=== PATIENT | male | born 1965 | race Caucasian/White ===

== ENCOUNTER 2019-08-16 12:28 | Inpatient (IN) ==
[2019-08-16 13:21] LABS: Basophils # (auto) 0.02 K/uL (0-0.2); Basophils % (auto) 0.3 %; Eosinophils # (auto) 0.06 K/uL (0-0.5); Eosinophils % (auto) 0.9 %; Hemoglobin 16.5 g/dL (14.0-18.0); Immature Granulocytes # (auto) 0.01 K/uL (0.00-0.02); Immature Granulocytes % (auto) 0.1 %; Lymphocytes % (auto) 24.2 %; Mean Corpuscular Hemoglobin 33.4 pg (25-34); Mean Corpuscular Hgb Conc 35.1 g/dL (32-36); Mean Corpuscular Volume 95.1 fL (80-100); Mean Platelet Volume 10.2 fL (7.4-10.4); Monocytes # (auto) 0.66 K/uL (0.11-0.59); Monocytes % (auto) 9.4 %; Neutrophils # (auto) 4.58 K/uL (1.4-6.5); Neutrophils % (auto) 65.1 %; Platelet Count 227 K/uL (130-400); RDW Coefficient of Variation 12.5 % (11.5-14.5); RDW Standard Deviation 42.9 fL (36.4-46.3); Red Blood Count 4.94 M/uL (4.7-6.1); White Blood Count 7.03 K/uL (4.8-10.8)
[2019-08-16 13:36] LABS: INR 1.2 (0.9-1.1); Partial Thromboplastin Ratio 0.9; Partial Thromboplastin Time 24.3 Seconds (21.0-31.0); Prothrombin Time 11.8 Seconds (9.0-12.0)
--- NOTE | 2019-08-16 13:52 | XRay Report ---
XR chest 2V PA/lateral CLINICAL HISTORY: Dyspnea COMPARISON STUDY: No previous studies for comparison. FINDINGS: There is no pneumothorax. There are small bilateral pleural effusions, left larger than rig ht. Extensive bilateral lower lobe consolidation is noted. A 5.1 cm irregular right midlung opacity i s noted. There is mild left midlung opacity is well. Moderate enlargement of the cardiac silhouette i s noted. Note is made of a 3.5 cm partially calcified density which projects over the heart. IMPRESSION: 1. Extensive bilateral lower lobe consolidation which favors pneumonia. Post treatment radiographs to ensure resolution are recommended. 2. Small bilateral pleural effusions, left larger than right. 3. 5.1 cm irregular right midlung opacity. This could reflect a focus of pneumonia or a pulmonary ma ss. This should be assessed on subsequent exams to ensure resolution. 4. 3.5 cm partially calcified abnormality which projects over the heart. This could reflect an old in farct, partially calcified thrombus or a cardiac mass. A chest CT is recommended. ACT 112: Negative or not required by law. Electronically signed by: Frankie Rodrigues M.D. 08/16/2019 1:51 PM
[2019-08-16 13:57] LABS: Albumin Globulin Ratio 0.9 (0.9-2); Albumin Level 3.3 gm/dl (3.4-5.0); BUN Creatinine Ratio 11.3 (10-20); Bilirubin,Total 0.7 mg/dl (0.2-1); Calcium 9.2 mg/dl (8.5-10.1); Creatinine Clr Calc Pharmacy 66.7 ml/min; Est GFR (African American) 86.1; Est GFR (Non-African American) 74.3; Globulin 3.7 gm/dl (2.5-4.0); Potassium 4.2 mmol/L (3.5-5.1)
[2019-08-16] MEDS ORDERED: PIPERACILLIN/TAZOBACTAM 4.5 GM/120 ML BAG IV ONE (13:57)
[2019-08-16] MEDS ORDERED: PIPERACILL/TAZOBAC CONSULT ACTIVE PRN (13:57)
[2019-08-16 14:04] LABS: Appearance Urine Clear (Clear); Bacteria Urine Automated Negative (Negative); Blood Urine Negative (Negative); Color Urine Dark Yellow; Glucose Urine UA Negative (Negative); Ketones Urine Trace (Negative); Leukocyte Esterase Urine Negative (Negative); Nitrite Urine Negative (Negative); Protein Urine 1+ (Negative); RBC Urine Automated 0-4 /hpf (0-4); Specific Gravity Urine 1.026 (1.000-1.030); Urobilinogen Urine Negative (Negative); pH Urine 5.5 (4.5-7.5)
[2019-08-16 14:10] LABS: Bilirubin Urine Negative (Negative); Ictotest Urine Negative (Negative)
[2019-08-16 14:20] LABS: Mucus Urine Present (None Prsent)
[2019-08-16] MEDS ORDERED: OPTIRAY 320 125ml IV PRN (14:22)
--- NOTE | 2019-08-16 14:43 | CT Scan Report ---
CT angio chest PE protocol CT DOSE: 337.66 mGycm HISTORY: ALEXANDER eval for PE/mass TECHNIQUE: Multiaxial CT images of the chest were performed following the intravenous administration of contrast to evaluate the pulmonary arteries. Maximal intensity projection images were also obtaine d. A dose lowering technique was utilized adhering to the principles of ALARA. COMPARISON STUDY: None. FINDINGS: The thoracic aorta is unremarkable. There are bilateral large pleural effusions. Pulmonary vasculature enhances appropriately. There are no significant filling defects. There are components of bilateral lower lobe atelectatic change. There are scattered parenchymal infiltrative changes involving the left upper lobe and more prominent ly seen in the right upper lobe region. IMPRESSION: 1. No evidence of pulmonary embolus. 2. Large bilateral pleural effusions with bilateral lower lobe atelectatic change. 3. Patchy parenchymal infiltrates involving the mid and upper lung regions bilaterally. 4. Consolidative infiltrate central aspect right upper lobe. ACT 112: Negative or not required by law. The above report was generated using voice recognition software. It may contain grammatical, syntax or spelling errors. Electronically signed by: Miller Silva M.D. 08/16/2019 2:41 PM
[2019-08-16 14:44] LABS: Influenza A virus by PCR Neg for Influ A (Neg); Influenza B virus by PCR Neg for Influ B (Neg)
[2019-08-16] MEDS ORDERED: ACETAMINOPHEN 325 MG TAB PO PRN (16:50)
[2019-08-16] MEDS ORDERED: cefTRIAXone SODIUM 2,000 MG/70 ML BAG IV SCH (16:50)
--- NOTE | 2019-08-16 17:20 | Emergency Department Note ---
Entered by Sandrita Lozano acting as a scribe for Macho Mendiola MD History of Present Illness General Chief complaint: Shortness of Breath/Dyspnea Stated complaint: TIGHTNESS IN CHEST - BREATHING PROBLEMS Time Seen by Provider: 08/16/19 12:51 Source: patient History of Present Illness Onset (ago): week(s) 3 Location: chest Pain Consistency: + other (worsening ) Maximum Pain Intensity: 0 Quality: + other (shortness of breath ) Exacerbated By: + other (exertion) Associated symptoms: + cough (productive with mucous) and + other (positive runny nose; negative muscle aches; negative leg swelling); no chest pain and no nausea/vomiting The patient is a 53 year old male who presents to the Emergency Room with complaints of worsening shortness of breath that began 3 weeks prior to arrival. He states during this time he has had a productive cough with mucous. The patient reports a runny nose during this time. The patient denies any chest pain or chest discomfort with this pain. He states that his shortness of breath is exacerbated with exertion. The patient denies nausea, vomiting, muscle aches, and leg swelling. He states that he was seen by [facility] just prior to arrival and states that an x-ray showed a small amount of fluid in his lungs at this time. He was sent here for evaluation. The patient states that his smokes in the house regularly, he denies being a smoker himself. Home Medications Home Medications Medication Instructions Recorded Confirmed Type No Known Home Medications 08/16/19 08/16/19 History Allergies Allergy/AdvReac Type Severity Reaction Status Date / Time No Known Allergies Allergy Unverified 08/16/19 13:48 Past Med/Surg History Medical History No significant past medical history Social History Preferred Language: Maltese Communication Ability: Effective Tube And Rod Straightener Required: No Beliefs That Will Affect Care: None Current Living Situation: Spouse Other Information That Helps Us Care for You: No Feels Safe at Home: Yes Safety Concerns: Feels Safe At This Time Smoking Status: Never smoker Do You Dip or Chew Tobacco: No ; Second Hand Exposure: No ; Tobacco Cessation Education Requested by Patient: No Hx Alcohol Use: Yes Hx Substance Use: No Review of Systems See HPI for pertinent positives & negatives. and A total of 10 systems reviewed and were otherwise negative Physical Exam Vital Signs Vital Signs - 24 hr 08/16/19 12:30 08/16/19 12:53 08/16/19 12:56 Pulse Rate 99 H 103 H Pulse Rate from SpO2 Sensor 103 H Respiratory Rate 18 21 Respiratory Effort / Characteristics Non-Labored Spontaneous Respiratory Depth Normal Blood Pressure 136/86 119/84 Blood Pressure Mean 102 90 Pulse Oximetry 100 93 96 Oxygen Delivery Method Room Air Room Air Sepsis Recent Fever Within 48 Hours No Sepsis Action Taken by Nursing No Action Required 08/16/19 12:59 08/16/19 13:00 08/16/19 13:01 Pulse Rate 103 H 103 H 103 H Pulse Rate from SpO2 Sensor 103 H 102 H 100 H Respiratory Rate 28 H 19 22 Respiratory Effort / Characteristics Respiratory Depth Blood Pressure 142/88 H Blood Pressure Mean 118 Pulse Oximetry 95 94 95 Oxygen Delivery Method Sepsis Recent Fever Within 48 Hours Sepsis Action Taken by Nursing 08/16/19 13:13 08/16/19 13:46 08/16/19 14:00 Pulse Rate 96 H 108 H 102 H Pulse Rate from SpO2 Sensor 107 H 103 H Respiratory Rate 20 23 28 H Respiratory Effort / Characteristics Respiratory Depth Blood Pressure 120/84 114/86 Blood Pressure Mean 97 95 Pulse Oximetry 98 96 96 Oxygen Delivery Method Room Air Sepsis Recent Fever Within 48 Hours Sepsis Action Taken by Nursing 08/16/19 14:01 08/16/19 14:33 08/16/19 14:52 Pulse Rate 105 H 107 H Pulse Rate from SpO2 Sensor 105 H 101 H Respiratory Rate 23 26 H 22 Respiratory Effort / Characteristics Respiratory Depth Blood Pressure Blood Pressure Mean Pulse Oximetry 97 98 Oxygen Delivery Method Sepsis Recent Fever Within 48 Hours Sepsis Action Taken by Nursing 08/16/19 14:54 08/16/19 15:00 08/16/19 15:01 Pulse Rate 100 H 100 H 99 H Pulse Rate from SpO2 Sensor 101 H 100 H 99 H Respiratory Rate 23 22 22 Respiratory Effort / Characteristics Respiratory Depth Blood Pressure 121/77 117/77 Blood Pressure Mean 94 90 Pulse Oximetry 96 96 96 Oxygen Delivery Method Sepsis Recent Fever Within 48 Hours Sepsis Action Taken by Nursing 08/16/19 15:30 08/16/19 15:31 Pulse Rate 97 H 99 H Pulse Rate from SpO2 Sensor 97 H Respiratory Rate 24 19 Respiratory Effort / Characteristics Respiratory Depth Blood Pressure 115/76 Blood Pressure Mean 82 Pulse Oximetry 96 Oxygen Delivery Method Sepsis Recent Fever Within 48 Hours Sepsis Action Taken by Nursing Constitutional: Vital signs reviewed. Eyes: Pupils are equal round reactive to light. Conjunctiva are noninjected. ENT: Pharynx is clear without erythema or exudate. Mucous membranes are moist. Neck supple without meningeal signs. Respiratory: Clear to auscultation bilaterally. Breath sounds are equal bilaterally. Cardiovascular: Regular rate and rhythm. No rubs or gallops. GI: Soft, nondistended and nontender. Bowel sounds are present. Musculoskeletal: No peripheral edema. No lower extremity tenderness. Integumentary: No cyanosis. Neurological: The patient is awake and alert. No focal deficits. Psychiatric: Normal affect. Course Course 1253: Past medical records reviewed. The patient was evaluated in room B10. A complete history and physical exam was performed. 1409: I talked to the patient about his test results. He states that he is agreeable to CT scan. The patient denies any chest pain currently. 1506: I discussed the case with Estella DIAZ who accepts the patient for further evaluation under Dr. Campos Hospitalist service. Administered Medications Discontinued Medications Piperacillin Sod/Tazobactam Sod (Zosyn) 4.5 gm in 120 mls @ 240 mls/hr IV NOW ONE Stop: 08/16/19 14:26 Last Infusion: 08/16/19 15:29 Dose: 0 mls/hr Documented by: [id number] Admin: 08/16/19 14:49 Dose: 240 mls/hr Documented by: [id number] Ioversol (Optiray 320 125ml) 119 ml IV ONCE PRN PRN Reason: Interaction Checking Stop: 08/20/19 14:21 Last Admin: 08/16/19 14:23 Dose: 119 ml Documented by: [id number] Medical Decision Making Differential Diagnosis Differential diagnoses include PE, pneumonia, pleural effusion, bronchitis, ACS, and others were considered. Medical Records Attestation: I reviewed the patient's medical records. (The pateint has no prior visits. ) Home Medications Current Medication List: was personally reviewed by me Laboratory Data Attestation: I reviewed the patient's lab results. Result diagrams: 08/16/19 13:09 08/16/19 13:09 Lab Results 08/16/19 08/16/19 08/16/19 Range/Units 13:09 13:09 13:09 WBC 7.03 (4.8-10.8) K/uL RBC 4.94 (4.7-6.1) M/uL Hgb 16.5 (14.0-18.0) g/dL Hct 47.0 (42-52) % MCV 95.1 (80-100) fL MCH 33.4 (25-34) pg MCHC 35.1 (32-36) g/dL RDW Std Deviation 42.9 (36.4-46.3) fL RDW Coeff of Opal 12.5 (11.5-14.5) % Plt Count 227 (130-400) K/uL MPV 10.2 (7.4-10.4) fL Immature Gran % (Auto) 0.1 % Neut % (Auto) 65.1 % Lymph % (Auto) 24.2 % Edgar % (Auto) 9.4 % Eos % (Auto) 0.9 % Baso % (Auto) 0.3 % Immature Gran # (Auto) 0.01 (0.00-0.02) K/uL Neut # (Auto) 4.58 (1.4-6.5) K/uL Lymph # (Auto) 1.70 (1.2-3.4) K/uL Edgar # (Auto) 0.66 H (0.11-0.59) K/uL Eos # (Auto) 0.06 (0-0.5) K/uL Baso # (Auto) 0.02 (0-0.2) K/uL PT 11.8 (9.0-12.0) Seconds INR 1.2 H (0.9-1.1) APTT 24.3 (21.0-31.0) Seconds PTT Ratio 0.9 POC D-Dimer (0-450) ng/mlFEU Sodium 136 (136-145) mmol/L Potassium 4.2 (3.5-5.1) mmol/L Chloride 104 (98-107) mmol/L Carbon Dioxide 25 (21-32) mmol/L Anion Gap 7.0 (3-11) BUN 13 (7-18) mg/dl Creatinine 1.13 (0.6-1.4) mg/dl Est Cr Clr Drug Dosing 66.7 ml/min Est GFR ( Amer) 86.1 Est GFR (Non-Af Amer) 74.3 BUN/Creatinine Ratio 11.3 (10-20) Glucose 145 H (70-99) mg/dl Calcium 9.2 (8.5-10.1) mg/dl Total Bilirubin 0.7 (0.2-1) mg/dl AST 24 (15-37) U/L ALT 19 (12-78) U/L Alkaline Phosphatase 84 (45-117) U/L POC Troponin I (0-0.045) ng/ml NT-Pro-B Natriuret Pep (0-900) pg/ml Total Protein 7.0 (6.4-8.2) gm/dl Albumin 3.3 L (3.4-5.0) gm/dl Globulin 3.7 (2.5-4.0) gm/dl Albumin/Globulin Ratio 0.9 (0.9-2) Specimen Hemolysis Urine Color Urine Appearance (Clear) Urine pH (4.5-7.5) Ur Specific [place] (1.000-1.030) Urine Protein (Negative) Urine Glucose (UA) (Negative) Urine Ketones (Negative) Urine Blood (Negative) Urine Nitrite (Negative) Urine Bilirubin (Negative) Urine Urobilinogen (Negative) Ur Leukocyte Esterase (Negative) Urine WBC (Auto) (0-5) /hpf Urine RBC (Auto) (0-4) /hpf U Hyaline Cast (Auto) (0-5) /lpf U Epithel Cells (Auto) (0-5) /lpf Urine Bacteria (Auto) (Negative) Granular Casts (0) /lpf Urine Mucus (None Prsent) Influenza Type A (PCR) (Neg) Influenza Type B (PCR) (Neg) 08/16/19 08/16/19 08/16/19 Range/Units 13:09 13:10 13:45 WBC (4.8-10.8) K/uL RBC (4.7-6.1) M/uL Hgb (14.0-18.0) g/dL Hct (42-52) % MCV (80-100) fL MCH (25-34) pg MCHC (32-36) g/dL RDW Std Deviation (36.4-46.3) fL RDW Coeff of Opal (11.5-14.5) % Plt Count (130-400) K/uL MPV (7.4-10.4) fL Immature Gran % (Auto) % Neut % (Auto) % Lymph % (Auto) % Edgar % (Auto) % Eos % (Auto) % Baso % (Auto) % Immature Gran # (Auto) (0.00-0.02) K/uL Neut # (Auto) (1.4-6.5) K/uL Lymph # (Auto) (1.2-3.4) K/uL Edgar # (Auto) (0.11-0.59) K/uL Eos # (Auto) (0-0.5) K/uL Baso # (Auto) (0-0.2) K/uL PT (9.0-12.0) Seconds INR (0.9-1.1) APTT (21.0-31.0) Seconds PTT Ratio POC D-Dimer > 450 H* (0-450) ng/mlFEU Sodium (136-145) mmol/L Potassium (3.5-5.1) mmol/L Chloride (98-107) mmol/L Carbon Dioxide (21-32) mmol/L Anion Gap (3-11) BUN (7-18) mg/dl Creatinine (0.6-1.4) mg/dl Est Cr Clr Drug Dosing ml/min Est GFR ( Amer) Est GFR (Non-Af Amer) BUN/Creatinine Ratio (10-20) Glucose (70-99) mg/dl Calcium (8.5-10.1) mg/dl Total Bilirubin (0.2-1) mg/dl AST (15-37) U/L ALT (12-78) U/L Alkaline Phosphatase (45-117) U/L POC Troponin I 0.05 H (0-0.045) ng/ml NT-Pro-B Natriuret Pep 17266 H (0-900) pg/ml Total Protein (6.4-8.2) gm/dl Albumin (3.4-5.0) gm/dl Globulin (2.5-4.0) gm/dl Albumin/Globulin Ratio (0.9-2) Specimen Hemolysis Urine Color Dark Yellow Urine Appearance Clear (Clear) Urine pH 5.5 (4.5-7.5) Ur Specific [place] 1.026 (1.000-1.030) Urine Protein 1+ H (Negative) Urine Glucose (UA) Negative (Negative) Urine Ketones Trace H (Negative) Urine Blood Negative (Negative) Urine Nitrite Negative (Negative) Urine Bilirubin Negative (Negative) Urine Urobilinogen Negative (Negative) Ur Leukocyte Esterase Negative (Negative) Urine WBC (Auto) 1-5 (0-5) /hpf Urine RBC (Auto) 0-4 (0-4) /hpf U Hyaline Cast (Auto) 5-10 H (0-5) /lpf U Epithel Cells (Auto) 10-20 H (0-5) /lpf Urine Bacteria (Auto) Negative (Negative) Granular Casts 1-5 H (0) /lpf Urine Mucus Present A (None Prsent) Influenza Type A (PCR) (Neg) Influenza Type B (PCR) (Neg) 08/16/19 Range/Units 14:04 WBC (4.8-10.8) K/uL RBC (4.7-6.1) M/uL Hgb (14.0-18.0) g/dL Hct (42-52) % MCV (80-100) fL MCH (25-34) pg MCHC (32-36) g/dL RDW Std Deviation (36.4-46.3) fL RDW Coeff of Opal (11.5-14.5) % Plt Count (130-400) K/uL MPV (7.4-10.4) fL Immature Gran % (Auto) % Neut % (Auto) % Lymph % (Auto) % Edgar % (Auto) % Eos % (Auto) % Baso % (Auto) % Immature Gran # (Auto) (0.00-0.02) K/uL Neut # (Auto) (1.4-6.5) K/uL Lymph # (Auto) (1.2-3.4) K/uL Edgar # (Auto) (0.11-0.59) K/uL Eos # (Auto) (0-0.5) K/uL Baso # (Auto) (0-0.2) K/uL PT (9.0-12.0) Seconds INR (0.9-1.1) APTT (21.0-31.0) Seconds PTT Ratio POC D-Dimer (0-450) ng/mlFEU Sodium (136-145) mmol/L Potassium (3.5-5.1) mmol/L Chloride (98-107) mmol/L Carbon Dioxide (21-32) mmol/L Anion Gap (3-11) BUN (7-18) mg/dl Creatinine (0.6-1.4) mg/dl Est Cr Clr Drug Dosing ml/min Est GFR ( Amer) Est GFR (Non-Af Amer) BUN/Creatinine Ratio (10-20) Glucose (70-99) mg/dl Calcium (8.5-10.1) mg/dl Total Bilirubin (0.2-1) mg/dl AST (15-37) U/L ALT (12-78) U/L Alkaline Phosphatase (45-117) U/L POC Troponin I (0-0.045) ng/ml NT-Pro-B Natriuret Pep (0-900) pg/ml Total Protein (6.4-8.2) gm/dl Albumin (3.4-5.0) gm/dl Globulin (2.5-4.0) gm/dl Albumin/Globulin Ratio (0.9-2) Specimen Hemolysis Urine Color Urine Appearance (Clear) Urine pH (4.5-7.5) Ur Specific [place] (1.000-1.030) Urine Protein (Negative) Urine Glucose (UA) (Negative) Urine Ketones (Negative) Urine Blood (Negative) Urine Nitrite (Negative) Urine Bilirubin (Negative) Urine Urobilinogen (Negative) Ur Leukocyte Esterase (Negative) Urine WBC (Auto) (0-5) /hpf Urine RBC (Auto) (0-4) /hpf U Hyaline Cast (Auto) (0-5) /lpf U Epithel Cells (Auto) (0-5) /lpf Urine Bacteria (Auto) (Negative) Granular Casts (0) /lpf Urine Mucus (None Prsent) Influenza Type A (PCR) Neg for Influ A (Neg) Influenza Type B (PCR) Neg for Influ B (Neg) Imaging Data Radiologist's Impression: Radiology results as stated below per my review and the radiologist's interpretation: XR chest 2V PA/lateral CLINICAL HISTORY: Dyspnea COMPARISON STUDY: No previous studies for comparison. FINDINGS: There is no pneumothorax. There are small bilateral pleural effusions, left larger than right. Extensive bilateral lower lobe consolidation is noted. A 5.1 cm irregular right midlung opacity is noted. There is mild left midlung opacity is well. Moderate enlargement of the cardiac silhouette is noted. Note is made of a 3.5 cm partially calcified density which projects over the heart. IMPRESSION: 1. Extensive bilateral lower lobe consolidation which favors pneumonia. Post treatment radiographs to ensure resolution are recommended. 2. Small bilateral pleural effusions, left larger than right. 3. 5.1 cm irregular right midlung opacity. This could reflect a focus of pneumonia or a pulmonary mass. This should be assessed on subsequent exams to ensure resolution. 4. 3.5 cm partially calcified abnormality which projects over the heart. This could reflect an old infarct, partially calcified thrombus or a cardiac mass. A chest CT is recommended. ACT 112: Negative or not required by law. Electronically signed by: Frankie Rodrigues M.D. 08/16/2019 1:[address] angio chest PE protocol CT DOSE: 337.66 mGycm HISTORY: ALEXANDER eval for PE/mass TECHNIQUE: Multiaxial CT images of the chest were performed following the intravenous administration of contrast to evaluate the pulmonary arteries. Maximal intensity projection images were also obtained. A dose lowering technique was utilized adhering to the principles of ALARA. COMPARISON STUDY: None. FINDINGS: The thoracic aorta is unremarkable. There are bilateral large pleural effusions. Pulmonary vasculature enhances appropriately. There are no significant filling defects. There are components of bilateral lower lobe atelectatic change. There are scattered parenchymal infiltrative changes involving the left upper lobe and more prominently seen in the right upper lobe region. IMPRESSION: 1. No evidence of pulmonary embolus. 2. Large bilateral pleural effusions with bilateral lower lobe atelectatic change. 3. Patchy parenchymal infiltrates involving the mid and upper lung regions bilaterally. 4. Consolidative infiltrate central aspect right upper lobe. ACT 112: Negative or not required by law. The above report was generated using voice recognition software. It may contain grammatical, syntax or spelling errors. Electronically signed by: Miller Silva M.D. 08/16/2019 2:41 PM ECG Data Attestation: I personally reviewed and interpreted this ECG as follows: Indication: + SOB/dyspnea Rate (beats per minute): 103 Rhythm: + sinus tachycardia ECG [place]: + Normal ECG ST segments: + ST depression (lateral V4-V6); no ST elevation ECG Findings: no PVCs Blood Pressure Blood Pressure Findings: Elevated blood pressure Blood Pressure Disposition: Referred to patients primary care provider JOHN Miranda I did evaluate the patient as noted above. The patient is presenting with cold symptoms for approximately 3 weeks with dyspnea on exertion. He was seen in an urgent care center and sent here because he had fluid in his lungs on x-ray. IV access was established. The patient was placed on a continuous phototypesetting equipment monitor. I did order and personally review the patient's 12-lead EKG as described above. His twelve-lead EKG demonstrates sinus tachycardia with ST depressions laterally. The patient states he does not have any chest discomfort or pain and is not currently short of breath. I did order and personally reviewed the images of the patient's chest x-ray as described above. He appears to have bilateral effusions with bilateral lower lobe infiltrate and a right mid lung mass. I did order blood cultures. I did treat the patient with Zosyn IV. I did order and review the patient's blood work as noted in the electronic medical record. CBC is unremarkable. There is no leukocytosis. Electrolytes are unremarkable. Troponin slightly elevated at 0.05. D-dimer is also elevated. I did discuss the test results with the patient and his . I did recommend CT scanning for further evaluation of the x-ray findings. I did order a CT angiogram of the chest. I did review the images myself as well as the radiology report as described above. There is no evidence of PE. The mass on CT appears to be a consolidative infiltrate. He does have bilateral large effusions. I did discuss the CT results with the patient. I did discuss the case with the hospitalist and manager case management. Impression & Plan Multifocal pneumonia, ALEXANDER (dyspnea on exertion), Abnormal ECG, Elevated troponin, Bilateral pleural effusion Discharge Plan Visit Data *Final* Discharge Date/Time: 08/16/19 16:13 Chief Complaint: Shortness of Breath/Dyspnea Stated Complaint: TIGHTNESS IN CHEST - BREATHING PROBLEMS ED Provider: Macho Mendiola Discharge Problem: Multifocal pneumonia, ALEXANDER (dyspnea on exertion), Abnormal ECG, Elevated troponin, Bilateral pleural effusion Patient Disposition: Admitted As Inpatient Discharge Instructions Interventions: ED Discharge Assessment Last Done: 08/16/19 16:13 The scribe's documentation has been prepared under my direction and personally reviewed by me in its entirety. I confirm that the note above accurately reflects all work, treatment, procedures, and medical decision making performed by me.
[2019-08-16 17:30] LABS: INR 1.2 (0.9-1.1); Prothrombin Time 11.7 Seconds (9.0-12.0)
[2019-08-16] MEDS ORDERED: AZITHROMYCIN 500 MG in DEXTROSE 5% 250 ML IV SCH (17:30)
[2019-08-16] MEDS ORDERED: FUROSEMIDE 40 MG in SYRINGE 0 ML IV ONE (17:30)
[2019-08-16] MEDS ORDERED: LORazepam 1 MG/2 ML VIAL IV PRN (17:32)
--- NOTE | 2019-08-16 17:32 | History & Physical Report ---
Date of Service August 16, 2019 Assessment & Plan (1) Bilateral pleural effusion: (2) Multifocal pneumonia: -Admit to [facility] with telemetry -Patient presenting from home with reports shortness of breath with minimal exertion -In the ED, CTA chest showing large bilateral pleural effusions with multifocal patchy infiltrates -Saturating well on room air, no leukocytosis, afebrile -Given large bilateral pleural effusions, consider some component of CHF as well; possible cardiomyopathy: alcoholic (patient reports drinking 3 beers per day however I suspect his use is more) vs. ischemic vs idiopathic -proBNP 12,000 -Will diurese with Lasix 40 mg IV -Check procalcitonin -S/p Zosyn in the ED; with continue with IV ceftriaxone and IV azithromycin for now -Echo (3) Elevated troponin: (4) Abnormal ECG: -EKG shows mild ST depressions in the anterior and lateral leads -Troponin mildly elevated 0.05 -likely due to demand ischemia from large bilateral pleural effusions -No reports of chest pain -Continue cycle cardiac enzymes, check resting echo -Follow-up EKG in the morning (5) Alcohol use: -Patient reports drinking 3 beers per day however I suspect his uses more -Monitor for signs of alcohol withdrawal -Place patient on alcohol withdrawal " at risk" protocol (6) DVT prophylaxis: -SCDs, ambulate History of Present Illness Chief Complaint: Shortness of breath Primary Care Provider: NO PCP 53-year-old male who presents the ED for evaluation of shortness of breath. Patient reports he has not been seen a physician in his adult life. He reports increasing exertional shortness of breath for the past 3 weeks. Shortness of breath is currently to the point that he gets short of breath with minimal exertion. He reports orthopnea. No lower extremity edema. He has had a productive cough. Unsure of the color as he typically swallows it. He denies chest pain. No recent travel or sick contacts. Denies fevers and chills. No lightheadedness, dizziness, diaphoresis, syncopal events. No abdominal pain, nausea vomiting diarrhea. Denies any urinary symptoms. In the ED, CT chest shows large bilateral pleural effusions with multifocal patchy infiltrates. Patient was given IV Zosyn. Allergies Allergy/AdvReac Type Severity Reaction Status Date / Time No Known Allergies Allergy Unverified 01/03/20 13:48 Home Medications Home Medications Medication Instructions Recorded Confirmed Type No Known Home Medications 08/16/19 08/16/19 History Past Med/Surg History Medical History No significant past medical history Surgical History No pertinent past surgical history Family History (Updated 08/16/19 @ 17:30 by JOE Leung) Mother Stroke Father Lung disease Social History (Updated 08/16/19 @ 17:31 by JOE Leung) Preferred Language: Danish Communication Ability: Effective [employer] Required: No Beliefs That Will Affect Care: None Current Living Situation: Spouse Other Information That Helps Us Care for You: No Feels Safe at Home: Yes Safety Concerns: Feels Safe At This Time Smoking Status: Never smoker Do You Dip or Chew Tobacco: Yes ; Second Hand Exposure: Yes ; Tobacco Cessation Education Requested by Patient: No Hx Alcohol Use: Yes Alcohol type: beer Alcohol Intake Frequency: Daily Alcohol Intake Frequency Comment: 3 beers/day Hx Substance Use: No Review of Systems Review of Systems: ROS per HPI, all other systems reviewed and negative Physical Exam Constitutional: WD/WN, vitals as above Eyes: PERRL, conjunctivae normal, anicteric sclerae ENMT: external ear and nose normal, oropharynx normal Respiratory: normal respiratory effort; no respiratory distress Auscultation: + diminished lung sounds (Bilaterally) Cardiovascular: Rate/Rhythm: regular rhythm and + tachycardic Vessels: normal peripheral pulses Extremities: no edema Gastrointestinal (Abdomen): normal bowel sounds, soft, nontender, no hepatosplenomegaly Musculoskeletal: no cyanosis or clubbing, extremities motor strength 5/5 Skin: no rashes, warm and dry Neurologic: PERRL, EOMI, accommodation nl, no face palsy, no dysarthria Psychiatric: A+Ox3, euthymic affect Results & Data Vital Signs (Past 12 Hours) Vital Signs Temp Pulse Pulse Resp BP BP Pulse Ox 08/16/19 16:30 36.3 C L 102 H 18 116/79 97 08/16/19 16:00 99 H 21 115/75 95 08/16/19 15:31 99 H 19 08/16/19 15:30 97 H 24 115/76 96 08/16/19 15:01 99 H 22 96 01/03/20 15:00 100 H 22 117/77 96 08/16/19 14:54 100 H 23 121/77 96 08/16/19 14:52 22 98 08/16/19 14:33 107 H 26 H 08/16/19 14:01 105 H 23 97 08/16/19 14:00 102 H 28 H 114/86 96 08/16/19 13:46 108 H 23 120/84 96 08/16/19 13:13 96 H 20 98 08/16/19 13:01 103 H 22 95 08/16/19 13:00 103 H 19 142/88 H 94 08/16/19 12:59 103 H 28 H 95 08/16/19 12:56 96 08/16/19 12:53 103 H 21 119/84 93 08/16/19 12:30 99 H 18 136/86 100 Laboratory Results Short CBC 08/16/19 Range/Units 13:09 WBC 7.03 (4.8-10.8) K/uL Hgb 16.5 (14.0-18.0) g/dL Hct 47.0 (42-52) % Plt Count 227 (130-400) K/uL BMP 08/16/19 13:09 Sodium 136 Potassium 4.2 Chloride 104 Carbon Dioxide 25 BUN 13 Creatinine 1.13 Glucose 145 H Calcium 9.2 Liver Function 08/16/19 Range/Units 13:09 Total Bilirubin 0.7 (0.2-1) mg/dl AST 24 (15-37) U/L ALT 19 (12-78) U/L Alkaline Phosphatase 84 (45-117) U/L Albumin 3.3 L (3.4-5.0) gm/dl Urine 08/16/19 Range/Units 13:45 Urine Color Dark Yellow Urine Appearance Clear (Clear) Urine pH 5.5 (4.5-7.5) Ur Specific Crooks 1.026 (1.000-1.030) Urine Protein 1+ H (Negative) Urine Glucose (UA) Negative (Negative) Diagnostic Findings CHEST CTA IMPRESSION: 1. No evidence of pulmonary embolus. 2. Large bilateral pleural effusions with bilateral lower lobe atelectatic change. 3. Patchy parenchymal infiltrates involving the mid and upper lung regions bilaterally. 4. Consolidative infiltrate central aspect right upper lobe. CXR IMPRESSION: 1. Extensive bilateral lower lobe consolidation which favors pneumonia. Post treatment radiographs to ensure resolution are recommended. 2. Small bilateral pleural effusions, left larger than right. 3. 5.1 cm irregular right midlung opacity. This could reflect a focus of pneumonia or a pulmonary mass. This should be assessed on subsequent exams to ensure resolution. 4. 3.5 cm partially calcified abnormality which projects over the heart. This could reflect an old infarct, partially calcified thrombus or a cardiac mass. A chest CT is recommended Code Status & VTE Plan VTE Prophylaxis Plan VTE Prophylaxis will be ordered: Yes Supervising Physician Co-Signing Physician Notes Pt was seen and examined. Agreed with Estella DIAZ exam, assessment and plan. 53 yo M with no significant PMH present with worsening SOB. Pt said that for about 3 weeks he has been having SOB with minimal exertion and orthopnea. CTA chest showed Large bilateral pleural effusions with bilateral lower lobe atelectatic change. Patchy parenchymal infiltrates involving the mid and upper lung regions bilaterally. Consolidative infiltrate central aspect right upper lobe. Lab showed BNP above 1200 and troponin mildly elevated. Influenza PCR negative. Received IV Zosyn in the ER, will changed abx to IV Rocephin and Zithromax. Lasix 40mg IV given. Pulmonology consult to eval for possible thoracentesis. Will get an echo in am. Continue monitor closely. MD Jose
[2019-08-16] MEDS: cefTRIAXone SODIUM 2,000 MG in DEXTROSE 5% 50 ML IV SCH (18:13)
[2019-08-16] MEDS: MULTIVITAMIN TAB PO SCH (18:20)
[2019-08-16] MEDS: FOLIC ACID 1 MG TAB PO SCH (18:20)
[2019-08-16] MEDS: THIAMINE HCL 100 MG TAB PO SCH (18:21)
[2019-08-17 06:32] LABS: Basophils # (auto) 0.02 K/uL (0-0.2); Basophils % (auto) 0.3 %; Eosinophils # (auto) 0.08 K/uL (0-0.5); Eosinophils % (auto) 1.4 %; Hematocrit (blood only) 42.3 % (42-52); Hemoglobin 14.6 g/dL (14.0-18.0); Immature Granulocytes # (auto) 0.01 K/uL (0.00-0.02); Immature Granulocytes % (auto) 0.2 %; Lymphocytes # (auto) 1.64 K/uL (1.2-3.4); Lymphocytes % (auto) 27.7 %; Mean Corpuscular Hemoglobin 32.6 pg (25-34); Mean Corpuscular Hgb Conc 34.5 g/dL (32-36); Mean Corpuscular Volume 94.4 fL (80-100); Mean Platelet Volume 10.1 fL (7.4-10.4); Monocytes % (auto) 8.5 %; Neutrophils # (auto) 3.66 K/uL (1.4-6.5); Neutrophils % (auto) 61.9 %; Platelet Count 186 K/uL (130-400); RDW Coefficient of Variation 12.5 % (11.5-14.5); RDW Standard Deviation 42.7 fL (36.4-46.3); Red Blood Count 4.48 M/uL (4.7-6.1); White Blood Count 5.91 K/uL (4.8-10.8)
[2019-08-17 06:45] LABS: Partial Thromboplastin Time 27.6 Seconds (21.0-31.0)
[2019-08-17 07:13] LABS: Albumin Level 2.9 gm/dl (3.4-5.0); BUN Creatinine Ratio 12.2 (10-20); Calcium 8.8 mg/dl (8.5-10.1); Creatinine Clr Calc Pharmacy 64.5 ml/min; Est GFR (African American) 82.6; Est GFR (Non-African American) 71.3; Magnesium 1.9 mg/dl (1.8-2.4); Potassium 3.8 mmol/L (3.5-5.1)
[2019-08-17 07:20] LABS: Albumin Globulin Ratio 0.9 (0.9-2); Bilirubin,Total 0.5 mg/dl (0.2-1); Globulin 3.2 gm/dl (2.5-4.0); Total Protein 6.1 gm/dl (6.4-8.2); Troponin I 0.241 ng/ml (0-0.045)
--- NOTE | 2019-08-17 07:46 | Electrocardiogram Report ---
Test Reason : Blood Pressure : / mmHG Vent. Rate : 103 BPM Atrial Rate : 103 BPM P-R Int : 138 ms QRS Dur : 098 ms QT Int : 362 ms P-R-T Axes : 026 013 085 degrees QTc Int : 474 ms Sinus tachycardia Possible Left atrial enlargement Cannot rule out Anterior infarct , age undetermined Abnormal ECG No previous ECGs available Confirmed by Vlad Kaminski ([id number]) on 08/17/2019 7:46:03 AM Referred By: Confirmed By:Marcos Kaminski
--- NOTE | 2019-08-17 08:51 | Hospitalist Progress Note ---
Date of Service August 17, 2019 Assessment & Plan (1) Bilateral pleural effusion: (2) Multifocal pneumonia: -Admit to [facility] with telemetry -Patient presenting from home with reports shortness of breath with minimal exertion -In the ED, CTA chest showing large bilateral pleural effusions with multifocal patchy infiltrates -saturating well on room air, no leukocytosis, procalcitonin negative, afebrile -Given large bilateral pleural effusions, consider some component of CHF as well; possible cardiomyopathy: alcoholic (patient reports drinking 3 beers per day however I suspect his use is more) vs. ischemic vs idiopathic -proBNP 12,000 -Received Lasix 40 mg IV -Echo pending -S/p Zosyn in the ED; now on IV ceftriaxone and IV azithromycin for now -Pulmonary consulted for bilateral pleural effusions/multifoc. pna -appreciate their input (3) Elevated troponin: (4) Abnormal ECG: -EKG shows mild ST depressions in the anterior and lateral leads -Troponin mildly elevated 0.05 -likely due to demand ischemia from large bilateral pleural effusions -Troponin continues to be elevated now at 0.2 this a.m. -EKG repeated, unchanged from previous -Pt continues to deny any chest pain, and says that he actually feels better today -Echo pending (5) Alcohol use: -Patient reports drinking 3 beers per day however suspect he uses more -Monitor for signs of alcohol withdrawal -Place patient on alcohol withdrawal " at risk" protocol (6) DVT prophylaxis: -SCDs, ambulate Subjective Patient is sitting up in bed, in no acute distress, on room air breathing comfortably. Reports he will be short of breath with any slight movements for several weeks now. Does not follow with any PCP, says he has not seen a physician in over 20 years. 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 and never had issues with that, and now even tying his shoes getting short of breath. Currently he says he feels better. Denies any chest pain, or any history of chest pain, also denies any shortness of breath, abdominal pain, nausea vomiting, cough, fevers or chills. Received IV Zosyn, and IV Lasix 40 mg in the ED yesterday for multifocal pna and pleural effusions,(possible CHF due to cardiomyopathy) Now on Ceftriaxone, azithromycin No leukocytosis, procalcitonin normal Troponin continues to be elevated, EKG repeated this morning, unchanged, no chest pain reported. BNP elevated Echo pending Review of Systems Review of Systems: All systems reviewed & are unremarkable except as noted in HPI & below Constitutional: no fever and no chills Respiratory: + cough (occasional cough, keny. in the morning) and + dyspnea on exertion Cardiovascular: no chest pain and no palpitations Gastrointestinal: no abdominal pain, no nausea and no vomiting Physical Exam Physical Exam: Constitutional: male pt, sitting up in bed, in no acute distress Eyes: PERRL, EOMI, conjunctivae normal, anicteric sclerae ENMT: external ear and nose normal, oropharynx normal Respiratory: normal respiratory effort; no respiratory distress Auscultation: + diminished lung sounds (Bilaterally), mild diffuse rhonchi Cardiovascular: Rate/Rhythm: regular rhythm and + mild tachycardic Vessels: normal peripheral pulses Extremities: no edema Gastrointestinal (Abdomen): normal bowel sounds, soft, nontender, nondistended, no guarding Musculoskeletal: no cyanosis or clubbing, extremities motor strength 5/5, moves all 4 extremities spontaneously Skin: no rashes, warm and dry Neurologic: PERRL, EOMI, accommodation nl, no face palsy, no dysarthria, speech fluent, moves all 4 extremities spontaneously Psychiatric: A+Ox3, euthymic affect Results & Data Vital Signs (Past 12 Hours) Vital Signs Temp Pulse Pulse Resp BP Pulse Ox 08/17/19 08:00 36.4 C L 91 H 18 122/74 97 08/17/19 04:44 36.7 C 88 18 111/70 91 08/16/19 23:46 36.7 C 93 H 19 106/71 92 08/16/19 23:17 92 H Laboratory Results 08/17/19 08/17/19 08/17/19 Range/Units 08:02 08:02 06:15 WBC (4.8-10.8) K/uL RBC (4.7-6.1) M/uL Hgb (14.0-18.0) g/dL Hct (42-52) % MCV (80-100) fL MCH (25-34) pg MCHC (32-36) g/dL RDW Std Deviation (36.4-46.3) fL RDW Coeff of Opal (11.5-14.5) % Plt Count (130-400) K/uL MPV (7.4-10.4) fL Immature Gran % (Auto) % Neut % (Auto) % Lymph % (Auto) % [place] % (Auto) % Eos % (Auto) % Baso % (Auto) % Immature Gran # (Auto) (0.00-0.02) K/uL Neut # (Auto) (1.4-6.5) K/uL Lymph # (Auto) (1.2-3.4) K/uL [place] # (Auto) (0.11-0.59) K/uL Eos # (Auto) (0-0.5) K/uL Baso # (Auto) (0-0.2) K/uL PT (9.0-12.0) Seconds INR (0.9-1.1) APTT (21.0-31.0) Seconds PTT Ratio POC D-Dimer (0-450) ng/mlFEU Sodium 136 (136-145) mmol/L Potassium 3.8 (3.5-5.1) mmol/L Chloride 104 (98-107) mmol/L Carbon Dioxide 25 (21-32) mmol/L Anion Gap 7.0 (3-11) BUN 14 (7-18) mg/dl Creatinine 1.17 (0.6-1.4) mg/dl Est Cr Clr Drug Dosing 64.5 ml/min Est GFR ( Amer) 82.6 Est GFR (Non-Af Amer) 71.3 BUN/Creatinine Ratio 12.2 (10-20) Glucose 91 (70-99) mg/dl Lactate 1.4 (0.4-2.0) mmol/L Calcium 8.8 (8.5-10.1) mg/dl Magnesium 1.9 (1.8-2.4) mg/dl Total Bilirubin 0.5 (0.2-1) mg/dl AST 23 (15-37) U/L ALT 21 (12-78) U/L Alkaline Phosphatase 80 (45-117) U/L POC Troponin I (0-0.045) ng/ml Troponin I 0.241 H* (0-0.045) ng/ml NT-Pro-B Natriuret Pep (0-900) pg/ml Total Protein 6.1 L (6.4-8.2) gm/dl Albumin 2.9 L (3.4-5.0) gm/dl Globulin 3.2 (2.5-4.0) gm/dl Albumin/Globulin Ratio 0.9 (0.9-2) Procalcitonin Pending (0-0.5) ng/ml Specimen Hemolysis Urine Color Urine Appearance (Clear) Urine pH (4.5-7.5) Ur Specific [place] (1.000-1.030) Urine Protein (Negative) Urine Glucose (UA) (Negative) Urine Ketones (Negative) Urine Blood (Negative) Urine Nitrite (Negative) Urine Bilirubin (Negative) Urine Urobilinogen (Negative) Ur Leukocyte Esterase (Negative) Urine WBC (Auto) (0-5) /hpf Urine RBC (Auto) (0-4) /hpf U Hyaline Cast (Auto) (0-5) /lpf U Epithel Cells (Auto) (0-5) /lpf Urine Bacteria (Auto) (Negative) Granular Casts (0) /lpf Urine Mucus (None Prsent) Influenza Type A (PCR) (Neg) Influenza Type B (PCR) (Neg) 08/17/19 08/17/19 08/17/19 Range/Units 06:15 06:15 01:27 WBC 5.91 (4.8-10.8) K/uL RBC 4.48 L (4.7-6.1) M/uL Hgb 14.6 (14.0-18.0) g/dL Hct 42.3 (42-52) % MCV 94.4 (80-100) fL MCH 32.6 (25-34) pg MCHC 34.5 (32-36) g/dL RDW Std Deviation 42.7 (36.4-46.3) fL RDW Coeff of Opal 12.5 (11.5-14.5) % Plt Count 186 (130-400) K/uL MPV 10.1 (7.4-10.4) fL Immature Gran % (Auto) 0.2 % Neut % (Auto) 61.9 % Lymph % (Auto) 27.7 % [place] % (Auto) 8.5 % Eos % (Auto) 1.4 % Baso % (Auto) 0.3 % Immature Gran # (Auto) 0.01 (0.00-0.02) K/uL Neut # (Auto) 3.66 (1.4-6.5) K/uL Lymph # (Auto) 1.64 (1.2-3.4) K/uL [place] # (Auto) 0.50 (0.11-0.59) K/uL Eos # (Auto) 0.08 (0-0.5) K/uL Baso # (Auto) 0.02 (0-0.2) K/uL PT (9.0-12.0) Seconds INR (0.9-1.1) APTT 27.6 (21.0-31.0) Seconds PTT Ratio 1.0 POC D-Dimer (0-450) ng/mlFEU Sodium (136-145) mmol/L Potassium (3.5-5.1) mmol/L Chloride (98-107) mmol/L Carbon Dioxide (21-32) mmol/L Anion Gap (3-11) BUN (7-18) mg/dl Creatinine (0.6-1.4) mg/dl Est Cr Clr Drug Dosing ml/min Est GFR ( Amer) Est GFR (Non-Af Amer) BUN/Creatinine Ratio (10-20) Glucose (70-99) mg/dl Lactate (0.4-2.0) mmol/L Calcium (8.5-10.1) mg/dl Magnesium (1.8-2.4) mg/dl Total Bilirubin (0.2-1) mg/dl AST (15-37) U/L ALT (12-78) U/L Alkaline Phosphatase (45-117) U/L POC Troponin I (0-0.045) ng/ml Troponin I 0.145 H* (0-0.045) ng/ml NT-Pro-B Natriuret Pep (0-900) pg/ml Total Protein (6.4-8.2) gm/dl Albumin (3.4-5.0) gm/dl Globulin (2.5-4.0) gm/dl Albumin/Globulin Ratio (0.9-2) Procalcitonin (0-0.5) ng/ml Specimen Hemolysis Urine Color Urine Appearance (Clear) Urine pH (4.5-7.5) Ur Specific [place] (1.000-1.030) Urine Protein (Negative) Urine Glucose (UA) (Negative) Urine Ketones (Negative) Urine Blood (Negative) Urine Nitrite (Negative) Urine Bilirubin (Negative) Urine Urobilinogen (Negative) Ur Leukocyte Esterase (Negative) Urine WBC (Auto) (0-5) /hpf Urine RBC (Auto) (0-4) /hpf U Hyaline Cast (Auto) (0-5) /lpf U Epithel Cells (Auto) (0-5) /lpf Urine Bacteria (Auto) (Negative) Granular Casts (0) /lpf Urine Mucus (None Prsent) Influenza Type A (PCR) (Neg) Influenza Type B (PCR) (Neg) 08/16/19 08/16/19 08/16/19 Range/Units 18:59 16:52 16:52 WBC (4.8-10.8) K/uL RBC (4.7-6.1) M/uL Hgb (14.0-18.0) g/dL Hct (42-52) % MCV (80-100) fL MCH (25-34) pg MCHC (32-36) g/dL RDW Std Deviation (36.4-46.3) fL RDW Coeff of Opal (11.5-14.5) % Plt Count (130-400) K/uL MPV (7.4-10.4) fL Immature Gran % (Auto) % Neut % (Auto) % Lymph % (Auto) % [place] % (Auto) % Eos % (Auto) % Baso % (Auto) % Immature Gran # (Auto) (0.00-0.02) K/uL Neut # (Auto) (1.4-6.5) K/uL Lymph # (Auto) (1.2-3.4) K/uL [place] # (Auto) (0.11-0.59) K/uL Eos # (Auto) (0-0.5) K/uL Baso # (Auto) (0-0.2) K/uL PT 11.7 (9.0-12.0) Seconds INR 1.2 H (0.9-1.1) APTT (21.0-31.0) Seconds PTT Ratio POC D-Dimer (0-450) ng/mlFEU Sodium (136-145) mmol/L Potassium (3.5-5.1) mmol/L Chloride (98-107) mmol/L Carbon Dioxide (21-32) mmol/L Anion Gap (3-11) BUN (7-18) mg/dl Creatinine (0.6-1.4) mg/dl Est Cr Clr Drug Dosing ml/min Est GFR ( Amer) Est GFR (Non-Af Amer) BUN/Creatinine Ratio (10-20) Glucose (70-99) mg/dl Lactate (0.4-2.0) mmol/L Calcium (8.5-10.1) mg/dl Magnesium (1.8-2.4) mg/dl Total Bilirubin (0.2-1) mg/dl AST (15-37) U/L ALT (12-78) U/L Alkaline Phosphatase (45-117) U/L POC Troponin I (0-0.045) ng/ml Troponin I 0.075 H* (0-0.045) ng/ml NT-Pro-B Natriuret Pep (0-900) pg/ml Total Protein (6.4-8.2) gm/dl Albumin (3.4-5.0) gm/dl Globulin (2.5-4.0) gm/dl Albumin/Globulin Ratio (0.9-2) Procalcitonin 0.09 (0-0.5) ng/ml Specimen Hemolysis Urine Color Urine Appearance (Clear) Urine pH (4.5-7.5) Ur Specific [place] (1.000-1.030) Urine Protein (Negative) Urine Glucose (UA) (Negative) Urine Ketones (Negative) Urine Blood (Negative) Urine Nitrite (Negative) Urine Bilirubin (Negative) Urine Urobilinogen (Negative) Ur Leukocyte Esterase (Negative) Urine WBC (Auto) (0-5) /hpf Urine RBC (Auto) (0-4) /hpf U Hyaline Cast (Auto) (0-5) /lpf U Epithel Cells (Auto) (0-5) /lpf Urine Bacteria (Auto) (Negative) Granular Casts (0) /lpf Urine Mucus (None Prsent) Influenza Type A (PCR) (Neg) Influenza Type B (PCR) (Neg) 08/16/19 08/16/19 08/16/19 Range/Units 14:04 13:45 13:10 WBC (4.8-10.8) K/uL RBC (4.7-6.1) M/uL Hgb (14.0-18.0) g/dL Hct (42-52) % MCV (80-100) fL MCH (25-34) pg MCHC (32-36) g/dL RDW Std Deviation (36.4-46.3) fL RDW Coeff of Opal (11.5-14.5) % Plt Count (130-400) K/uL MPV (7.4-10.4) fL Immature Gran % (Auto) % Neut % (Auto) % Lymph % (Auto) % [place] % (Auto) % Eos % (Auto) % Baso % (Auto) % Immature Gran # (Auto) (0.00-0.02) K/uL Neut # (Auto) (1.4-6.5) K/uL Lymph # (Auto) (1.2-3.4) K/uL [place] # (Auto) (0.11-0.59) K/uL Eos # (Auto) (0-0.5) K/uL Baso # (Auto) (0-0.2) K/uL PT (9.0-12.0) Seconds INR (0.9-1.1) APTT (21.0-31.0) Seconds PTT Ratio POC D-Dimer > 450 H* (0-450) ng/mlFEU Sodium (136-145) mmol/L Potassium (3.5-5.1) mmol/L Chloride (98-107) mmol/L Carbon Dioxide (21-32) mmol/L Anion Gap (3-11) BUN (7-18) mg/dl Creatinine (0.6-1.4) mg/dl Est Cr Clr Drug Dosing ml/min Est GFR ( Amer) Est GFR (Non-Af Amer) BUN/Creatinine Ratio (10-20) Glucose (70-99) mg/dl Lactate (0.4-2.0) mmol/L Calcium (8.5-10.1) mg/dl Magnesium (1.8-2.4) mg/dl Total Bilirubin (0.2-1) mg/dl AST (15-37) U/L ALT (12-78) U/L Alkaline Phosphatase (45-117) U/L POC Troponin I 0.05 H (0-0.045) ng/ml Troponin I (0-0.045) ng/ml NT-Pro-B Natriuret Pep (0-900) pg/ml Total Protein (6.4-8.2) gm/dl Albumin (3.4-5.0) gm/dl Globulin (2.5-4.0) gm/dl Albumin/Globulin Ratio (0.9-2) Procalcitonin (0-0.5) ng/ml Specimen Hemolysis Urine Color Dark Yellow Urine Appearance Clear (Clear) Urine pH 5.5 (4.5-7.5) Ur Specific [place] 1.026 (1.000-1.030) Urine Protein 1+ H (Negative) Urine Glucose (UA) Negative (Negative) Urine Ketones Trace H (Negative) Urine Blood Negative (Negative) Urine Nitrite Negative (Negative) Urine Bilirubin Negative (Negative) Urine Urobilinogen Negative (Negative) Ur Leukocyte Esterase Negative (Negative) Urine WBC (Auto) 1-5 (0-5) /hpf Urine RBC (Auto) 0-4 (0-4) /hpf U Hyaline Cast (Auto) 5-10 H (0-5) /lpf U Epithel Cells (Auto) 10-20 H (0-5) /lpf Urine Bacteria (Auto) Negative (Negative) Granular Casts 1-5 H (0) /lpf Urine Mucus Present A (None Prsent) Influenza Type A (PCR) Neg for Influ A (Neg) Influenza Type B (PCR) Neg for Influ B (Neg) 08/16/19 08/16/19 08/16/19 Range/Units 13:09 13:09 13:09 WBC 7.03 (4.8-10.8) K/uL RBC 4.94 (4.7-6.1) M/uL Hgb 16.5 (14.0-18.0) g/dL Hct 47.0 (42-52) % MCV 95.1 (80-100) fL MCH 33.4 (25-34) pg MCHC 35.1 (32-36) g/dL RDW Std Deviation 42.9 (36.4-46.3) fL RDW Coeff of Opal 12.5 (11.5-14.5) % Plt Count 227 (130-400) K/uL MPV 10.2 (7.4-10.4) fL Immature Gran % (Auto) 0.1 % Neut % (Auto) 65.1 % Lymph % (Auto) 24.2 % [place] % (Auto) 9.4 % Eos % (Auto) 0.9 % Baso % (Auto) 0.3 % Immature Gran # (Auto) 0.01 (0.00-0.02) K/uL Neut # (Auto) 4.58 (1.4-6.5) K/uL Lymph # (Auto) 1.70 (1.2-3.4) K/uL [place] # (Auto) 0.66 H (0.11-0.59) K/uL Eos # (Auto) 0.06 (0-0.5) K/uL Baso # (Auto) 0.02 (0-0.2) K/uL PT 11.8 (9.0-12.0) Seconds INR 1.2 H (0.9-1.1) APTT 24.3 (21.0-31.0) Seconds PTT Ratio 0.9 POC D-Dimer (0-450) ng/mlFEU Sodium (136-145) mmol/L Potassium (3.5-5.1) mmol/L Chloride (98-107) mmol/L Carbon Dioxide (21-32) mmol/L Anion Gap (3-11) BUN (7-18) mg/dl Creatinine (0.6-1.4) mg/dl Est Cr Clr Drug Dosing ml/min Est GFR ( Amer) Est GFR (Non-Af Amer) BUN/Creatinine Ratio (10-20) Glucose (70-99) mg/dl Lactate (0.4-2.0) mmol/L Calcium (8.5-10.1) mg/dl Magnesium (1.8-2.4) mg/dl Total Bilirubin (0.2-1) mg/dl AST (15-37) U/L ALT (12-78) U/L Alkaline Phosphatase (45-117) U/L POC Troponin I (0-0.045) ng/ml Troponin I (0-0.045) ng/ml NT-Pro-B Natriuret Pep 78385 H (0-900) pg/ml Total Protein (6.4-8.2) gm/dl Albumin (3.4-5.0) gm/dl Globulin (2.5-4.0) gm/dl Albumin/Globulin Ratio (0.9-2) Procalcitonin (0-0.5) ng/ml Specimen Hemolysis Urine Color Urine Appearance (Clear) Urine pH (4.5-7.5) Ur Specific [place] (1.000-1.030) Urine Protein (Negative) Urine Glucose (UA) (Negative) Urine Ketones (Negative) Urine Blood (Negative) Urine Nitrite (Negative) Urine Bilirubin (Negative) Urine Urobilinogen (Negative) Ur Leukocyte Esterase (Negative) Urine WBC (Auto) (0-5) /hpf Urine RBC (Auto) (0-4) /hpf U Hyaline Cast (Auto) (0-5) /lpf U Epithel Cells (Auto) (0-5) /lpf Urine Bacteria (Auto) (Negative) Granular Casts (0) /lpf Urine Mucus (None Prsent) Influenza Type A (PCR) (Neg) Influenza Type B (PCR) (Neg) 08/16/19 Range/Units 13:09 WBC (4.8-10.8) K/uL RBC (4.7-6.1) M/uL Hgb (14.0-18.0) g/dL Hct (42-52) % MCV (80-100) fL MCH (25-34) pg MCHC (32-36) g/dL RDW Std Deviation (36.4-46.3) fL RDW Coeff of Opal (11.5-14.5) % Plt Count (130-400) K/uL MPV (7.4-10.4) fL Immature Gran % (Auto) % Neut % (Auto) % Lymph % (Auto) % [place] % (Auto) % Eos % (Auto) % Baso % (Auto) % Immature Gran # (Auto) (0.00-0.02) K/uL Neut # (Auto) (1.4-6.5) K/uL Lymph # (Auto) (1.2-3.4) K/uL [place] # (Auto) (0.11-0.59) K/uL Eos # (Auto) (0-0.5) K/uL Baso # (Auto) (0-0.2) K/uL PT (9.0-12.0) Seconds INR (0.9-1.1) APTT (21.0-31.0) Seconds PTT Ratio POC D-Dimer (0-450) ng/mlFEU Sodium 136 (136-145) mmol/L Potassium 4.2 (3.5-5.1) mmol/L Chloride 104 (98-107) mmol/L Carbon Dioxide 25 (21-32) mmol/L Anion Gap 7.0 (3-11) BUN 13 (7-18) mg/dl Creatinine 1.13 (0.6-1.4) mg/dl Est Cr Clr Drug Dosing 66.7 ml/min Est GFR ( Amer) 86.1 Est GFR (Non-Af Amer) 74.3 BUN/Creatinine Ratio 11.3 (10-20) Glucose 145 H (70-99) mg/dl Lactate (0.4-2.0) mmol/L Calcium 9.2 (8.5-10.1) mg/dl Magnesium (1.8-2.4) mg/dl Total Bilirubin 0.7 (0.2-1) mg/dl AST 24 (15-37) U/L ALT 19 (12-78) U/L Alkaline Phosphatase 84 (45-117) U/L POC Troponin I (0-0.045) ng/ml Troponin I (0-0.045) ng/ml NT-Pro-B Natriuret Pep (0-900) pg/ml Total Protein 7.0 (6.4-8.2) gm/dl Albumin 3.3 L (3.4-5.0) gm/dl Globulin 3.7 (2.5-4.0) gm/dl Albumin/Globulin Ratio 0.9 (0.9-2) Procalcitonin (0-0.5) ng/ml Specimen Hemolysis Urine Color Urine Appearance (Clear) Urine pH (4.5-7.5) Ur Specific [place] (1.000-1.030) Urine Protein (Negative) Urine Glucose (UA) (Negative) Urine Ketones (Negative) Urine Blood (Negative) Urine Nitrite (Negative) Urine Bilirubin (Negative) Urine Urobilinogen (Negative) Ur Leukocyte Esterase (Negative) Urine WBC (Auto) (0-5) /hpf Urine RBC (Auto) (0-4) /hpf U Hyaline Cast (Auto) (0-5) /lpf U Epithel Cells (Auto) (0-5) /lpf Urine Bacteria (Auto) (Negative) Granular Casts (0) /lpf Urine Mucus (None Prsent) Influenza Type A (PCR) (Neg) Influenza Type B (PCR) (Neg) Medications Administered Current Inpatient Medications Acetaminophen (Tylenol) 650 mg PO Q4H PRN PRN Reason: pain/fever Stop: 09/15/19 16:49 Folic Acid (Folvite) 1 mg PO [facility] Stop: 09/15/19 17:44 Last Admin: 08/16/19 18:20 Dose: 1 mg Documented by: Azithromycin 500 mg/ Dextrose 255 mls @ 125 mls/hr IV Q24H [facility] Stop: 08/23/19 17:29 Last Infusion: 08/16/19 21:36 Dose: Infused Documented by: Ceftriaxone Sodium 2,000 mg/ (Dextrose) 70 mls @ 140 mls/hr IV Q24H [facility] Stop: 08/23/19 17:29 Last Infusion: 08/16/19 19:19 Dose: Infused Documented by: Lorazepam (Ativan) 1 mg in 2 mls @ 2 mls/min IV ONE PRN; Protocol PRN Reason: EtoH Withdrawal AWSS 6-10 Stop: 09/15/19 17:31 Multivitamins (Multivitamin Tab) 1 tab PO [facility] Stop: 09/15/19 17:44 Last Admin: 08/16/19 18:20 Dose: 1 tab Documented by: Thiamine HCl (Vitamin B-1) 100 mg PO [facility] Stop: 09/15/19 17:44 Last Admin: 08/16/19 18:21 Dose: 100 mg Documented by:
[2019-08-17] MEDS: THIAMINE HCL 100 MG TAB PO SCH (09:14)
[2019-08-17] MEDS: MULTIVITAMIN TAB PO SCH (09:14)
[2019-08-17] MEDS: FOLIC ACID 1 MG TAB PO SCH (09:14)
--- NOTE | 2019-08-17 12:49 | Procedure Note ---
Procedure Note Date of Service August 17, 2019 Note Procedure: Diagnostic and therapeutic left ultrasound-guided catheter thoracentesis Private Duty Aide: Dr. Baldo Yao Indication: Pleural effusion Consent: Signed by patient and verified with timeout prior to procedure Anesthesia: 8 mL's of 1% lidocaine without epinephrine given locally Procedure: Consent was verified and timeout performed. Appropriate imaging studies were reviewed prior to the procedure. Patient was placed in a semirecumbent position and limited thoracic ultrasound was performed of the left chest. See separate imaging. The site appropriate for thoracentesis was selected. The skin was prepped and draped in normal sterile fashion. Lidocaine was used for local analgesia. Fluid was aspirated via the finder needle. A small skin neal was made with the scalpel and the catheter over the needle apparatus was advanced over the rib into the pleural space. Using the syringe one-way valve system, a total of 1850 mL's of yellow fluid was removed. Procedure was terminated due to pain. The catheter was removed and observed to be intact. A sterile dressing was applied. Post procedure chest x-ray was ordered. Fluid was sent for LDH, total protein, cell count, glucose, pH, cytology, AFB cultures, gram stain and culture and fungal cultures. The patient tolerated the procedure well without obvious complication Coding CPT Codes Pulmonary/Thoracic - Pulmonary and Thoracic: 24641 Thoracentesis w imaging ([id number])
--- NOTE | 2019-08-17 12:58 | Pulmonary Consultation ---
Date of Consultation August 17, 2019 Assessment & Plan (1) Bilateral pleural effusion: I performed a thoracentesis of the left pleural effusion today. I was able to drain about 1850 mL's of clear yellow fluid. I did send the fluid for studies and cytology. I do not think that this fluid is infected based on its appearance. We can decide whether we need to drain the right side over the next day or 2. I would recommend continue with diuretics. On my [id number] ultrasound of his heart, his ejection fraction did appear reduced. We will await the official echo results. I suspect that the effusions are secondary to cardiomyopathy; perhaps alcoholic cardiomyopathy. Obviously, we need more data before we can say this with confidence. He does have a right upper lobe infiltrate. Recommend continuing ceftriaxone and azithromycin. This can be switched to p.o. in the next day or so. I would recommend 7 days of antibiotics. He will need repeat imaging in 6 weeks to follow-up on the abnormality seen in the right upper lobe. Recommend sending a sputum culture. I will continue to follow along with you. Thank you for allowing me to participate in his care. (2) Abnormal ECG: (3) Alcohol use: (4) Multifocal pneumonia: History of Present Illness Reason for Consultation: Large bilateral effusions and right upper lobe infiltrate Attending Physician: Ham Yanez MD History of Present Illness This is a 53-year-old male with no significant past medical history who presented to the hospital due to ongoing shortness of breath and occasional cough. Patient notes that for the last 2 to 3 weeks he has been having increasing shortness of breath at work. 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 He notes that this past the shortness of breath was so severe that he was basically unable to work and thus this is what prompted him going to the ER. He notes that his breathing actually improves when he lays flat at night. He does have an intermittent cough with no productive sputum. He denies any hemoptysis. He denies any changes in his weight. He denies any leg swelling or abdominal swelling. Denies nausea or vomiting. He did have some mild chest tightness yesterday, but that has resolved spontaneously. He does endorse a history of alcohol use. He drinks 4-5 beers a day and sometimes more on the weekend. He does note that he may have passed out related to alcohol in his teens and 20s, but that has not happened recently. He denies any drugs or tobacco use. He lives in a house in [place]. He has no known exposures. He has not traveled recently. Chest x-ray was performed yesterday demonstrated extensive bilateral lobe consolidation. There was small bilateral effusions seen in the left was greater than the right. He had a 5.1 cm irregular right midlung opacity as well. There is also concern for 3.5 cm partially calcified abnormality which projected over the heart. Follow-up CTA of the chest demonstrated large bilateral pleural effusions with passive atelectasis. There was patchy parenchymal infiltrates involving the mid and right upper lung zones bilaterally. There is also a consolidative infiltrate in the right upper lobe. I did personally review these images. I performed bedside ultrasound which demonstrated large bilateral effusions with passive atelectasis. These look like simple effusions. He also had some B- lines consistent with interstitial edema. I did look at a parasternal long axis view of his heart which demonstrated reduced ejection fraction. It appeared that he had some left ventricular dilation. We are still waiting on the official echo interpretation. He did have a very substantially elevated proBNP to 12,745. Allergies Allergy/AdvReac Type Severity Reaction Status Date / Time No Known Allergies Allergy Unverified 08/16/19 13:48 Home Medications Home Medications Medication Instructions Recorded Confirmed Type No Known Home Medications 08/16/19 08/16/19 History Patient History Medical History No significant past medical history Surgical History No pertinent past surgical history Family History Mother Stroke Father Lung disease Social History Preferred Language: Turkish Communication Ability: Effective Thread Marker Required: No Beliefs That Will Affect Care: None Current Living Situation: Spouse Other Information That Helps Us Care for You: No Feels Safe at Home: Yes Safety Concerns: Feels Safe At This Time Smoking Status: Never smoker Do You Dip or Chew Tobacco: Yes ; Second Hand Exposure: Yes ; Tobacco Cessation Education Requested by Patient: No Hx Alcohol Use: Yes Alcohol type: beer Alcohol Intake Frequency: Daily Alcohol Intake Frequency Comment: 3 beers/day Hx Substance Use: No Review of Systems Review of Systems: All systems reviewed & are unremarkable except as noted in HPI & below Physical Exam Constitutional: Patient is alert and oriented no apparent distress. He is well developed. He is well-nourished. Eyes: PERRL, conjunctivae normal, anicteric sclerae ENMT: external ear and nose normal, oropharynx normal Neck: normal visual inspection Respiratory: Crackles in the bilateral bases with diminished breath sounds. Cardiovascular: RRR, no murmur, no edema Gastrointestinal (Abdomen): normal bowel sounds, soft, nontender, no hepatosplenomegaly Musculoskeletal: No clubbing seen. There is some peripheral cyanosis. Able to move all extremities with ease. Skin: no rashes, warm and dry Neurologic: No focal neurological deficits Psychiatric: Pleasant. Alert and oriented x3. Good eye contact. Lymphatic: no cervical lymphadenopathy Results & Data Vital Signs (Past 12 Hours) Vital Signs Temp Pulse Pulse Resp BP Pulse Ox 08/17/19 08:00 97.5 F L 85 91 H 18 122/74 97 08/17/19 04:44 98.1 F 88 18 111/70 91 I did personally review the patient's pertinent labs, chest imaging and notes. PG Care Time/CCT Total # of Minutes Spent Total Time Spent with Patient: Total time spent is greater than 50% in coordination of care (as documented) at patient's floor/unit and/or counseling patient:
--- NOTE | 2019-08-17 13:00 | Electrocardiogram Report ---
Test Reason : Blood Pressure : / mmHG Vent. Rate : 086 BPM Atrial Rate : 086 BPM P-R Int : 160 ms QRS Dur : 102 ms QT Int : 414 ms P-R-T Axes : 073 083 103 degrees QTc Int : 495 ms Normal sinus rhythm with sinus arrhythmia Nonspecific ST and T wave abnormality Prolonged QT Abnormal ECG When compared with ECG of 16-AUG-2019 12:50, Questionable change in QRS axis Confirmed by Freeman Vasquez ([id number]) on 08/17/2019 1:00:21 PM Referred By: REFERRED SELF Confirmed By:Freeman Vasquez
--- NOTE | 2019-08-17 13:02 | Electrocardiogram Report ---
Test Reason : Blood Pressure : / mmHG Vent. Rate : 089 BPM Atrial Rate : 089 BPM P-R Int : 158 ms QRS Dur : 098 ms QT Int : 390 ms P-R-T Axes : 044 032 180 degrees QTc Int : 474 ms Normal sinus rhythm Possible Left atrial enlargement Poor R wave progression, consider anterior MT vs. lead placement vs. LVH Abnormal ECG When compared with ECG of 17-AUG-2019 07:17, (unconfirmed) No significant change was found Confirmed by Freeman Vasquez ([id number]) on 08/17/2019 1:02:29 PM Referred By: REFERRED SELF Confirmed By:Freeman Vasquez
--- NOTE | 2019-08-17 13:13 | XRay Report ---
XR chest 1V portable CLINICAL HISTORY: s/p left thora postthoracentesis COMPARISON STUDY: 08/16/2019 FINDINGS: No evidence of pneumothorax post left thoracentesis. Improved aeration left lung base. Cephalic progressive infiltrative process right base. IMPRESSION: 1. No evidence for pneumothorax post left thoracentesis. 2. Slightly progressive right basilar parenchymal infiltrate. 3. Slight improvement of an oval density right midlung. ACT 112: Negative or not required by law. The above report was generated using voice recognition software. It may contain grammatical, syntax or spelling errors. Electronically signed by: Miller Silva M.D. 08/17/2019 1:11 PM
[2019-08-17 13:33] LABS: Bilirubin,Total 0.5 mg/dl (0.2-1); Total Protein 6.6 gm/dl (6.4-8.2)
[2019-08-17 13:36] LABS: Glucose Pleural Fluid 114 mg/dl
[2019-08-17 13:42] LABS: Amylase Pleural Fluid 19 U/L; LDH Pleural Fluid 42 U/L; Total Protein Pleural Fluid 1.7 g/dl
[2019-08-17 14:14] LABS: Appearance Pleural Fluid CLEAR; Basophils, Fluid 1 %; Color Pleural Fluid PALE YELLOW; Eosinophils, Fluid 0 %; Lymphocytes, Fluid 58 %; Mono,Macrophage,Mesothelial 27 %; Neutrophils, Fluid 14 %; RBC Pleural Fluid (A) < 3000 /uL; Source Pleural Fluid LEFT LUNG; WBC Pleural Fluid (A) 99 /uL
--- NOTE | 2019-08-17 15:59 | Cardiology Consultation ---
Date of Consultation August 17, 2019 Assessment & Plan (1) Acute HFrEF (heart failure with reduced ejection fraction): (2) Severe aortic stenosis: (3) Severe aortic regurgitation: (4) Multifocal pneumonia: In addition to the bilateral pleural effusions, chest CT revealed suggestion of right upper lobe pneumonia. I think it is reasonable to continue with empiric antibiotic therapy for now, agree with having transitioned him to oral azithromycin and IV Rocephin in order to minimize IV fluid intake. Patient received furosemide 40 mg x 1 yesterday evening, he underwent left-sided ultrasound-guided thoracentesis by the pulmonary service this morning yielding 1850 mL of clear yellow fluid. Preliminary results are suggestive of transudate of fluid. Follow-up chest x-ray reveals near complete resolution of the previously noted left pleural effusion. There is suggestion that the heart silhouette is enlarged. Echocardiogram reveals moderate left ventricular systolic dysfunction, calculated LVEF of 34%. Moderate global left ventricular hypokinesis is present with relative sparing of the septal saravia. Given significant amount of fluid loss with 1 dose of IV diuretic in the thoracentesis, will hold off on further diuretic treatment at present, I believe the tentative plan is for a thoracentesis on the right side tomorrow. Although I believe his pleural effusions are due to CHF, thoracentesis would certainly be very helpful, and will be followed by ongoing diuretic therapy for maintenance. Counseled him that I believe he requires further assessment for surgical replacement of his aortic valve. The aortic valve is severely calcified. The morphology is not well visualized, but a bicuspid aortic valve is likely present given his age, and since there are no other significant valvular abnormalities I think this looks less likely like rheumatic heart disease. I counseled that first-degree relatives including his siblings and his child should be screened with an echocardiogram. I anticipate need for coronary angiography perhaps this admission with upcoming consideration of surgical aortic valve replacement if not this admission, then within the next month. History of Present Illness Attending Physician: Ham Yanez MD History of Present Illness Javier Robert is a 53 year old male seen in cardiology consultation per the request of Dr Yanez for the evaluation of aortic valve stenosis, aortic valve regurgitation and moderate LV systolic dysfunction. The patient was accompanied by his sister and spouse at the bedside at the time of my interview and exam. He states that he has been experiencing symptoms of shortness of breath and "chest congestion "as if he had a cold for several weeks. Yesterday he had progressive shortness of breath with minimal exertion and therefore was initially seen at an urgent care center and then referred to the emergency department. Work-up revealed large bilateral pleural effusions. He went on to have an echocardiogram performed earlier today which was reviewed by the undersigned revealing moderate left ventricular systolic dysfunction with a calculated LVEF of 34%, along with findings of severe aortic valve stenosis and severe aortic valve regurgitation. All of these findings are new. The patient reportedly has not seen a medical provider during his adult life. At present, he is feeling comfortable, having had left-sided thoracentesis earlier today. 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 He is a non-smoker, that his spouse smokes cigarettes. Allergies Allergy/AdvReac Type Severity Reaction Status Date / Time No Known Allergies Allergy Unverified 08/16/19 13:48 Home Medications Home Medications Medication Instructions Recorded Confirmed Type No Known Home Medications 08/16/19 08/16/19 History Patient History Medical History No significant past medical history Surgical History No pertinent past surgical history Family History Mother Stroke Father Lung disease Social History Preferred Language: Urdu Communication Ability: Effective Supervisor [employer] Required: No Beliefs That Will Affect Care: None Current Living Situation: Spouse Other Information That Helps Us Care for You: No Feels Safe at Home: Yes Safety Concerns: Feels Safe At This Time Smoking Status: Never smoker Do You Dip or Chew Tobacco: Yes ; Second Hand Exposure: Yes ; Tobacco Cessation Education Requested by Patient: No Hx Alcohol Use: Yes Alcohol type: beer Alcohol Intake Frequency: Daily Alcohol Intake Frequency Comment: 3 beers/day Hx Substance Use: No Review of Systems Review of Systems: All systems reviewed & are unremarkable except as noted in HPI & below Physical Exam Physical Exam: Temp Pulse Resp BP Pulse Ox 36.8 C 94 H 18 121/79 90 08/17/19 15:23 08/17/19 15:23 08/17/19 15:23 08/17/19 15:23 08/17/19 15:23 Constitutional: WD/WN, vitals as above Neck: trachea midline, no thyromegaly Respiratory: Auscultation: + diminished lung sounds (Bilaterally at the bases); no rhonchi and no wheezes Cardiovascular: Rate/Rhythm: regular rate and + tachycardic (Borderline, rates in the upper 90 bpm range) Heart Sounds: + murmur (II/ systolic and diastolic murmurs noted at the right sternal border) Vessels: + JVD (2 cm) Results & Data Vital Signs (Past 12 Hours) Vital Signs Temp Pulse Pulse Resp BP BP Pulse Ox 08/17/19 15:23 36.8 C 94 H 18 121/79 90 08/17/19 13:00 95 H 18 114/79 94 08/17/19 12:57 36.5 C 101 H 20 125/77 94 08/17/19 08:00 36.4 C L 85 91 H 18 122/74 97 08/17/19 04:44 36.7 C 88 18 111/70 91 Laboratory Results Troponin levels 0.075, 0.145, 0.241 ng/ml respectively. Diagnostic Findings EKG performed 08/16/2019 and reviewed independently by the undersigned revealed sinus tachycardia 103 bpm, and age-indeterminate anterior infarction cannot be excluded based on poor R wave progression in leads V1 to V3, LVH noted by voltage criteria. EKG performed 08/17/2019 7:49 AM normal sinus rhythm 89 bpm, poor R wave progression.
[2019-08-17] MEDS: cefTRIAXone SODIUM 2,000 MG in DEXTROSE 5% 50 ML IV SCH (17:13)
[2019-08-17] MEDS: AZITHROMYCIN 250 MG TAB PO SCH (20:32)
[2019-08-18] MEDS: FOLIC ACID 1 MG TAB PO SCH (08:27)
[2019-08-18] MEDS: THIAMINE HCL 100 MG TAB PO SCH (08:27)
[2019-08-18] MEDS: MULTIVITAMIN TAB PO SCH (08:27)
[2019-08-18] MEDS: AZITHROMYCIN 250 MG TAB PO SCH (08:27)
--- NOTE | 2019-08-18 09:03 | Hospitalist Progress Note ---
Date of Service August 18, 2019 Assessment & Plan (1) Bilateral pleural effusion: Secondary to Acute HFrEF, severe aortic stenosis, severe aortic regurgitation Now status post thoracentesis (L side) yesterday, yielded 1800 cc, of transudative fluid -Pulmonary consulted, plan for thoracentesis today -Cardiology consulted for Acute HFrEF, aortic stenosis and aortic regurgitation -Echocardiogram revealed LVEF of 34%, moderate global left ventricular hypokinesis -Patient will need surgical repair of aortic valve, in anticipation of this procedure, patient will need coronary angiography during this admission or within the next month (2) Multifocal pneumonia: -Patient presenting from home with reports shortness of breath with minimal exertion -In the ED, CTA chest showing large bilateral pleural effusions with multifocal patchy infiltrates -saturating well on room air, no leukocytosis, procalcitonin negative, afebrile -Given large bilateral pleural effusions, considered some component of CHF as well; possible cardiomyopathy: alcoholic (patient reports drinking 3 beers per day however I suspect his use is more) vs. ischemic vs idiopathic -proBNP 12,000 -Received Lasix 40 mg IV -Echo confirmed heart failure with reduced ejection fraction, LVEF 34%, severe aortic regurgitation and severe aortic stenosis -S/p Zosyn in the ED; now on IV ceftriaxone and IV azithromycin for now -Pulmonary consulted for bilateral pleural effusions/multifoc. pna -appreciate their input (patient is now status post left thoracentesis (08/17), yielded 1800 of transudative fluid, plan for right-sided thoracentesis today), also recommend ongoing antibiotic treatment (3) Elevated troponin: (4) Abnormal ECG: -EKG shows mild ST depressions in the anterior and lateral leads -Troponin mildly elevated 0.05 -likely due to demand ischemia from large bilateral pleural effusions -Troponin continues to be elevated at 0.2, secondary to above -EKG repeated, unchanged from previous -Pt continues to deny any chest pain, and says that he actually feels better today -Echo as above -cardiology following (5) Alcohol use: -Patient reports drinking 3 beers per day however suspect he uses more -Monitor for signs of alcohol withdrawal -Place patient on alcohol withdrawal " at risk" protocol (6) DVT prophylaxis: -SCDs, ambulate Subjective S/p Left thoracentesis, drained about 1800 cc of fluid (seems transudative), from CHF exacerbation. Echo yesterday significant for EF 34%, severe aortic stenosis, and severe aortic regurg. Patient is currently sitting up in the bed, in no acute distress. Says that he feels already much better and he can breathe better. Denies any fevers, chills, chest pain, abdominal pain, nausea or vomiting. Review of Systems Review of Systems: ROS per HPI, all other systems reviewed and negative Respiratory: + cough (occasional cough, keny. in the morning) and + dyspnea on exertion Physical Exam Physical Exam: Constitutional: male pt, sitting up in bed, in no acute distress, on room air Eyes: PERRL, EOMI, conjunctivae normal, anicteric sclerae ENMT: external ear and nose normal, oropharynx normal Respiratory: normal respiratory effort; no respiratory distress Auscultation: + diffuse rhonchi and crackles Cardiovascular: Rate/Rhythm: regular rhythm and + mild tachycardic, + syst. murmur at USB Vessels: normal peripheral pulses Extremities: no LE edema Gastrointestinal (Abdomen): normal bowel sounds, soft, nontender, nondistended, no guarding Musculoskeletal: no cyanosis or clubbing, extremities motor strength 5/5, moves all 4 extremities spontaneously Skin: no rashes, warm and dry Neurologic: PERRL, EOMI, accommodation nl, no face palsy, no dysarthria, speech fluent, moves all 4 extremities spontaneously Psychiatric: A+Ox3, euthymic affect Results & Data Vital Signs (Past 12 Hours) Vital Signs Temp Pulse Pulse Resp BP BP Pulse Ox 08/18/19 07:28 36.7 C 85 16 98/64 L 93 08/18/19 07:22 79 08/18/19 04:34 36.8 C 86 20 100/66 95 08/17/19 23:06 94 H 08/17/19 22:36 37.1 C 93 H 20 103/68 94 Laboratory Results 08/17/19 08/17/19 08/17/19 Range/Units 13:07 13:07 13:00 Total Bilirubin 0.5 (0.2-1) mg/dl Lactate Dehydrogenase 231 (87-241) U/L Total Protein 6.6 (6.4-8.2) gm/dl Procalcitonin (0-0.5) ng/ml Fluid Neutrophils % % Fluid Lymphocytes % % Fluid Eosinophils % % Fluid Basophils % % Fluid Meso/Macro/[place] % % Pleural Fluid Source Pleural Color Pleural Appearance Pleural pH 7.55 H (7.3-7.4) Pleural WBC /uL Pleural RBC /uL Pleural Total Protein g/dl Pleural LDH U/L Pleural Glucose mg/dl Pleural Amylase U/L 08/17/19 08/17/19 Range/Units 13:00 08:02 Total Bilirubin (0.2-1) mg/dl Lactate Dehydrogenase (87-241) U/L Total Protein (6.4-8.2) gm/dl Procalcitonin 0.12 (0-0.5) ng/ml Fluid Neutrophils % 14 % Fluid Lymphocytes % 58 % Fluid Eosinophils % 0 % Fluid Basophils % 1 % Fluid Meso/Macro/[place] % 27 % Pleural Fluid Source LEFT LUNG Pleural Color PALE YELLOW Pleural Appearance CLEAR Pleural pH (7.3-7.4) Pleural WBC 99 /uL Pleural RBC < 3000 /uL Pleural Total Protein 1.7 g/dl Pleural LDH 42 U/L Pleural Glucose 114 mg/dl Pleural Amylase 19 U/L Medications Administered Current Inpatient Medications Acetaminophen (Tylenol) 650 mg PO Q4H PRN PRN Reason: pain/fever Stop: 09/15/19 16:49 Azithromycin (Zithromax) 500 mg PO [facility] Stop: 08/22/19 09:01 Last Admin: 08/18/19 08:27 Dose: 500 mg Documented by: Folic Acid (Folvite) 1 mg PO [facility] Stop: 09/15/19 17:44 Last Admin: 08/18/19 08:27 Dose: 1 mg Documented by: Ceftriaxone Sodium 2,000 mg/ (Dextrose) 70 mls @ 140 mls/hr IV Q24H [facility] Stop: 08/23/19 17:29 Last Infusion: 08/17/19 17:47 Dose: Infused Documented by: Lorazepam (Ativan) 1 mg in 2 mls @ 2 mls/min IV ONE PRN; Protocol PRN Reason: EtoH Withdrawal AWSS 6-10 Stop: 09/15/19 17:31 Multivitamins (Multivitamin Tab) 1 tab PO [facility] Stop: 09/15/19 17:44 Last Admin: 08/18/19 08:27 Dose: 1 tab Documented by: Thiamine HCl (Vitamin B-1) 100 mg PO [facility] Stop: 09/15/19 17:44 Last Admin: 08/18/19 08:27 Dose: 100 mg Documented by:
[2019-08-18 12:45] LABS: BUN Creatinine Ratio 13.4 (10-20); Calcium 8.5 mg/dl (8.5-10.1); Creatinine Clr Calc Pharmacy 65.4 ml/min; Est GFR (Non-African American) 77.6; Potassium 3.9 mmol/L (3.5-5.1)
--- NOTE | 2019-08-18 13:10 | Electrocardiogram Report ---
Test Reason : Blood Pressure : / mmHG Vent. Rate : 083 BPM Atrial Rate : 083 BPM P-R Int : 154 ms QRS Dur : 096 ms QT Int : 424 ms P-R-T Axes : 050 072 097 degrees QTc Int : 498 ms Sinus rhythm with marked sinus arrhythmia Nonspecific ST and T wave abnormality Prolonged QT Abnormal ECG When compared with ECG of 17-AUG-2019 07:49, Non-specific change in ST segment in Anterior leads T wave inversion no longer evident in Anterior leads Confirmed by Freeman Vasquez ([id number]) on 08/18/2019 1:09:35 PM Referred By: REFERRED SELF Confirmed By:Freeman Vasquez
--- NOTE | 2019-08-18 13:13 | Procedure Note ---
Procedure Note Date of Service August 18, 2019 Note Procedure: Diagnostic and therapeutic ultrasound-guided catheter right sided thoracentesis Support Services Manager: Dr. Baldo Yao Indication: Pleural effusion Consent: Signed by patient and verified with timeout prior to procedure Anesthesia: 8 mL's of 1% lidocaine without epinephrine given locally Procedure: Consent was verified and timeout performed. Appropriate imaging studies were reviewed prior to the procedure. Patient was placed in a semirecumbent and limited thoracic ultrasound was performed of the right chest. See separate imaging. The site appropriate for thoracentesis was selected. The skin was prepped and draped in normal sterile fashion. Lidocaine was used for local analgesia. Fluid was aspirated via the finder needle. A small skin neal was made with the scalpel and the catheter over the needle apparatus was advanced over the rib into the pleural space. Using the syringe one-way valve system, a total of 1450 mL's of clear yellow fluid was removed. Procedure was terminated due to chest pressure. The catheter was removed and observed to be intact. A sterile dressing was applied. Post procedure chest x-ray was ordered. Fluid was sent for LDH, total protein, cytology, AFB cultures, gram stain and cultures. The patient tolerated the procedure well without obvious complication Coding CPT Codes Pulmonary/Thoracic - Pulmonary and Thoracic: 05742 Thoracentesis w imaging ([id number])
--- NOTE | 2019-08-18 13:18 | Pulmonology Progress Note ---
Date of Service August 18, 2019 Assessment & Plan (1) Bilateral pleural effusion: I performed a right-sided thoracentesis today and removed 1450 mL's of clear yellow fluid. I also did a thoracentesis yesterday and removed 1850 mL's of clear yellow fluid. This is related to his acute severe aortic stenosis and aortic insufficiency. He also has left ventricular dysfunction with an EF of approximately 34%. Cardiology has been consulted. He will likely need a left heart cath and an aortic valve replacement in the near future. Should the effusions reaccumulate quickly in the next week or so, we would be happy to assist and perform a thoracentesis. He does need definitive management for his heart. With regards to the right upper lobe opacity, this may actually represent an atypical presentation of pulmonary edema, however, it is difficult to rule out completely an infectious process. Recommend completing a course of 7 days of p.o. antibiotics. He will need a repeat CT chest in about 6 to 8 weeks. From my standpoint, he is okay to be discharged home and pulmonary can see him on an outpatient basis if needed. Thank you for allowing us to partake in the care of this pleasant gentleman. Please call with questions. (2) Abnormal ECG: (3) Alcohol use: (4) Multifocal pneumonia: (5) Severe aortic regurgitation: (6) Severe aortic stenosis: (7) Acute systolic heart failure: Subjective Patient is feeling much better today after the left-sided thoracentesis yesterday. His breathing is much easier. He did have some coughing overnight. Denies any chest pain. We did perform a thoracentesis today on the right and removed 1400 mL's of clear yellow fluid. Physical Exam Constitutional: WD/WN, vitals as above Eyes: PERRL, conjunctivae normal, anicteric sclerae Respiratory: Clear to auscultation on the left. Diminished on the right. No use of accessory muscles. Cardiovascular: Loud diastolic rumble in the right upper sternal border. Regular rhythm and rate. Gastrointestinal (Abdomen): normal bowel sounds, soft, nontender, no hepatosplenomegaly Psychiatric: A+Ox3, euthymic affect Results & Data Vital Signs (Past 12 Hours) Vital Signs Temp Pulse Pulse Resp BP BP Pulse Ox 08/18/19 11:47 98.2 F 81 16 100/66 96 01/05/20 07:28 98.1 F 85 16 98/64 L 93 08/18/19 07:22 79 08/18/19 04:34 98.2 F 86 20 100/66 95 I personally reviewed the patient's pertinent labs, chest imaging and previous notes. PG Care Time/CCT Total # of Minutes Spent Total Time Spent with Patient: Total time spent is greater than 50% in coordination of care (as documented) at patient's floor/unit and/or counseling patient:
--- NOTE | 2019-08-18 13:29 | Cardiology Progress Note ---
Date of Service August 18, 2019 Assessment & Plan (1) Acute HFrEF (heart failure with reduced ejection fraction): (2) Severe aortic stenosis: (3) Severe aortic regurgitation: (4) Bilateral pleural effusion: Patient underwent left-sided thoracentesis on 08/17/2019 yielding 1.85 L, right-sided thoracentesis performed today 08/18/2019 yielded ~1.4 L. Repeat chest x-ray pending. Pulmonary input noted and appreciated. His blood pressure is on the lower side. Although he does have left ventricular systolic dysfunction, I think this is likely a consequence of his advanced valvular heart disease. I am concerned about lowering his blood pressure too much, and therefore I do not feel he is a candidate for beta-gerardo therapy at present. Afterload reduction with KARON inhibitor or angiotensin receptor gerardo is relatively contraindicated in the setting of severe aortic stenosis, and g shannanen his most recent systolic blood pressure reading of 100 mmHg, I think it is most prudent to hold off on initiating these medications as well. Discussed updates with patient and his spouse at the bedside. I plan a repeat CBC and chemistry panel tomorrow, and I have requested that he be held n.p.o. after midnight for tentative diagnostic cardiac catheterization to exclude underlying coronary heart disease as part of a work-up for anticipated surgical aortic valve replacement. Subjective Chief complaint: Follow-up shortness of breath Subjective: Patient feeling well. Just before my arrival, right-sided thoracentesis had been completed which he tolerated well. Telemetry reveals sinus rhythm in the range of 80 to 90 bpm. Chemistry panel performed today revealed stable findings. Review of Systems Review of Systems: All systems reviewed & are unremarkable except as noted in HPI & below Physical Exam Physical Exam: Temp Pulse Resp BP Pulse Ox 36.8 C 81 16 100/66 96 08/18/19 11:47 08/18/19 11:47 08/18/19 11:47 08/18/19 11:47 08/18/19 11:47 Constitutional: WD/WN, vitals as above Respiratory: Very minimally decreased breath sounds at the bases, certainly significant improved compared to yesterday Cardiovascular: Rate/Rhythm: regular rhythm Heart Sounds: + murmur (II/ systolic murmur) Vessels: no JVD Extremities: no edema Gastrointestinal (Abdomen): normal bowel sounds, soft, nontender, no hepatosplenomegaly Neurologic: PERRL, EOMI, accommodation nl, no face palsy, no dysarthria Results & Data Vital Signs (Past 12 Hours) Vital Signs Temp Pulse Pulse Resp BP BP Pulse Ox 08/18/19 11:47 36.8 C 81 16 100/66 96 08/18/19 07:28 36.7 C 85 16 98/64 L 93 08/18/19 07:22 79 08/18/19 04:34 36.8 C 86 20 100/66 95 Laboratory Results Cardiac Enzymes 08/17/19 Range/Units 13:07 Lactate Dehydrogenase 231 (87-241) U/L Comprehensive Metabolic Panel 08/17/19 08/18/19 Range/Units 13:07 12:15 Sodium 136 (136-145) mmol/L Potassium 3.9 (3.5-5.1) mmol/L Chloride 103 (98-107) mmol/L Carbon Dioxide 26 (21-32) mmol/L BUN 15 (7-18) mg/dl Creatinine 1.09 (0.6-1.4) mg/dl Glucose 95 (70-99) mg/dl Calcium 8.5 (8.5-10.1) mg/dl Total Protein 6.6 (6.4-8.2) gm/dl Intake and Output 08/17/19 08/18/19 08/18/19 22:59 06:59 14:59 Intake Total 720 / 960 240 / 960 Output Total 2 / 2 Balance 718 / 958 240 / 958 Intake: IV 70 / 70 Rocephin 2,000 mg In D5w 50 ml 70 / 70 @ 140 mls/hr IV Q24H [facility] Rx#: [id number] Oral 650 / 890 240 / 890 Output: # Bowel Movements 2 / 2 Other: Other Intake Source sips # Unmeasured Voids 2 Weight 58.3 kg Diagnostic Findings EKG performed 08/18/2019 7:27 AM: Sinus rhythm with sinus arrhythmia 83 bpm, mild diffuse nonspecific ST abnormality. Prolonged QT interval for genetic milliseconds, but this difficult to calculate and interpret in the setting of the ST segment changes.
[2019-08-18 14:06] LABS: Total Protein Pleural Fluid 1.7 g/dl
--- NOTE | 2019-08-18 14:22 | XRay Report ---
XR chest 1V portable CLINICAL HISTORY: follow up right sided thoracentesis postthoracentesis COMPARISON STUDY: 08/17/2019 FINDINGS: Improved aeration right hemithorax postthoracentesis. No postprocedural pneumothorax. Interval development of parenchymal infiltrative change left mid and basilar region IMPRESSION: 1. No evidence of pneumothorax post right thoracentesis. 2. Interval development of a progressive infiltrate left mid and lower lung. 3. Unchanged density right midlung. ACT 112: Negative or not required by law. The above report was generated using voice recognition software. It may contain grammatical, syntax or spelling errors. Electronically signed by: Miller Silva M.D. 08/18/2019 2:21 PM
[2019-08-18] MEDS: cefTRIAXone SODIUM 2,000 MG in DEXTROSE 5% 50 ML IV SCH (18:14)
[2019-08-19] MEDS ORDERED: ALBUMIN 25% 50 ML IV ONE ×2 (00:28→05:09)
[2019-08-19] MEDS ORDERED: DEXTROSE 5% 1,000 ML IV SCH (00:30)
[2019-08-19 07:06] LABS: Basophils # (auto) 0.02 K/uL (0-0.2); Basophils % (auto) 0.3 %; Eosinophils % (auto) 3.1 %; Hematocrit (blood only) 40.4 % (42-52); Hemoglobin 13.8 g/dL (14.0-18.0); Immature Granulocytes # (auto) 0.02 K/uL (0.00-0.02); Immature Granulocytes % (auto) 0.3 %; Lymphocytes # (auto) 1.54 K/uL (1.2-3.4); Lymphocytes % (auto) 24.1 %; Mean Corpuscular Hemoglobin 32.2 pg (25-34); Mean Corpuscular Hgb Conc 34.2 g/dL (32-36); Mean Corpuscular Volume 94.4 fL (80-100); Mean Platelet Volume 9.8 fL (7.4-10.4); Monocytes # (auto) 0.55 K/uL (0.11-0.59); Monocytes % (auto) 8.6 %; Neutrophils # (auto) 4.06 K/uL (1.4-6.5); Neutrophils % (auto) 63.6 %; Platelet Count 199 K/uL (130-400); RDW Coefficient of Variation 12.5 % (11.5-14.5); RDW Standard Deviation 42.9 fL (36.4-46.3); Red Blood Count 4.28 M/uL (4.7-6.1); White Blood Count 6.39 K/uL (4.8-10.8)
[2019-08-19 07:41] LABS: BUN Creatinine Ratio 11.7 (10-20); Calcium 8.7 mg/dl (8.5-10.1); Creatinine Clr Calc Pharmacy 73.2 ml/min; Est GFR (African American) 104.9; Est GFR (Non-African American) 90.5; Potassium 3.3 mmol/L (3.5-5.1)
--- NOTE | 2019-08-19 10:04 | Cardiology Progress Note ---
Date of Service August 19, 2019 Assessment & Plan (1) Acute HFrEF (heart failure with reduced ejection fraction): (2) Severe aortic stenosis: (3) Severe aortic regurgitation: (4) Bilateral pleural effusion: Patient borderline hypotensive overnight, however, blood pressure has returned to baseline. Mild hyponatremia consequence of D5W infusion. Will discontinue IV fluid now. Risks, benefits, and alternatives to cardiac catheterization with coronary angiography discussed at length. Patient agreeable to procedure. Administer 325 mg aspirin prior to procedure. Subjective Patient seen and examined at the bedside. Denies chest pain or unusual shortness of breath. Feeling much better since thoracentesis. Hypotensive overnight. Denies lightheadedness, dizziness, syncope, or near syncope. Orthopnea and exertional dyspnea has resolved. No sustained dysrhythmias on telemetry. is present at bedside. Patient offers no additional concerns/complaints this time. Review of Systems Review of Systems: All systems reviewed & are unremarkable except as noted in HPI & below Physical Exam Constitutional: well developed and well nourished Eyes: PERRL, conjunctivae normal, anicteric sclerae Respiratory: normal respiratory effort, lungs clear to auscultation Cardiovascular: Rate/Rhythm: regular rate and regular rhythm Heart Sounds: normal S1 and + murmur (2-3/6 systolic ejection murmur heard best at the right second intercostal space.) Vessels: femoral pulses present and radial pulses present; no JVD and no carotid bruit Extremities: no edema Gastrointestinal (Abdomen): Inspection/Auscultation: abdomen normal to inspection and normal bowel sounds; abdomen not distended Percussion/Palpation: abdomen soft; abdomen nontender, no guarding and abdomen not rigid Musculoskeletal: no cyanosis or clubbing, extremities motor strength 5/5 Skin: no rashes, warm and dry Neurologic: moves all extremities; no focal motor deficits Psychiatric: A+Ox3, euthymic affect Results & Data Vital Signs (Past 12 Hours) Vital Signs Temp Pulse Pulse Resp BP BP Pulse Ox 08/19/19 09:36 100/67 08/19/19 08:17 36.8 C 88 18 84/56 L 92 08/19/19 08:06 90/57 L 08/19/19 04:00 36.5 C 82 18 89/55 L 94 08/18/19 23:15 95 H 01/05/20 23:00 36.6 C 84 18 96/63 L 95
--- NOTE | 2019-08-19 10:07 | Pre Anesthesia Assessment ---
Date of Service August 19, 2019 Pre Sedation Assessment Vital Signs Temp Pulse Pulse Resp BP BP Pulse Ox 08/19/19 09:36 100/67 08/19/19 08:17 36.8 C 88 18 84/56 L 92 08/19/19 08:06 90/57 L 08/19/19 04:00 36.5 C 82 18 89/55 L 94 08/18/19 23:15 95 H 08/18/19 23:00 36.6 C 84 18 96/63 L 95 08/18/19 19:26 36.4 C L 89 18 100/66 96 08/18/19 16:00 86 08/18/19 15:25 36.6 C 85 21 97/63 L 96 08/18/19 11:47 36.8 C 81 16 100/66 96 Cardiovascular + regular rate + S1 normal and + murmur (2-3/6 late peaking systolic ejection murmur heard best at the right second intercostal space) + femoral pulses present; no JVD and no carotid bruit no edema Respiratory normal respiratory effort, lungs clear to auscultation Pre-Sedation Airway Assessment Smoking Status: Never smoker Notes The planned sedation has been discussed with the patient. Informed Consent was obtained. I have identified the patient, determined the appropriateness of sedation and have assessed the patient immediately prior to the procedure. All medicine(s) and interventions are by my order.
[2019-08-19] MEDS: THIAMINE HCL 100 MG TAB PO SCH (10:14)
[2019-08-19] MEDS: MULTIVITAMIN TAB PO SCH (10:14)
[2019-08-19] MEDS: FOLIC ACID 1 MG TAB PO SCH (10:14)
[2019-08-19] MEDS ORDERED: ASPIRIN 81 MG CHEW PO ONE (10:15)
[2019-08-19] MEDS ORDERED: HEPARIN (PORCINE) 1000 UNIT/ML 10 ML (CATH LAB USE ONLY) ONE (11:15)
[2019-08-19] MEDS ORDERED: NiCARDipine HCL INJ 2.5 MG/ML 10 ML AMP ONE (11:15)
[2019-08-19] MEDS ORDERED: MIDAZOLAM HCL 1 MG/ML 2ML VIAL ONE (11:16)
[2019-08-19] MEDS ORDERED: NITROGLYCERIN/D5W 100MCG/ML 20ML SYR ONE (11:16)
[2019-08-19] MEDS ORDERED: fentaNYL citrate 100 MCG/2 ML VIAL ONE (11:16)
--- NOTE | 2019-08-19 12:04 | Post Anesthesia Assessment ---
Date of Service August 19, 2019 Post Sedation Assessment Vital Signs Temp Pulse Pulse Resp BP BP Pulse Ox 08/19/19 11:23 36.6 C 86 16 102/64 94 08/19/19 09:36 100/67 08/19/19 08:17 36.8 C 88 18 84/56 L 92 08/19/19 08:06 90/57 L 08/19/19 08:00 90 08/19/19 04:00 36.5 C 82 18 89/55 L 94 08/18/19 23:15 95 H 08/18/19 23:00 36.6 C 84 18 96/63 L 95 08/18/19 19:26 36.4 C L 89 18 100/66 96 08/18/19 16:00 86 08/18/19 15:25 36.6 C 85 21 97/63 L 96 Recovery Score Activity: Moves 4 extremities Respiration: Deep Breath/Cough Circulation: +/-20% PreAnes Value Consciousness: Fully Awake Oxygen Saturation: > 92% On Room Air Discharge Sedation Level of Care: Phase I Post Sedation Plan On clinical assessment, the patient appears to have tolerated the sedation without complications. Patient is recovering as anticipated. Patient will continue to be monitored by nursing and may be discharged when sedation discharge criteria are met per below protocol. Upon Completions of procedure up to 15 minutes continue every 5 minute vital signs and the P.A.R. score; then discharge to a Phase I or Fast Track to Phase II per the following guidelines: * Discharge Patient to appropriate Phase II area if PAR is 8 or greater or return to pre- procedure baseline. The post - procedure orders will be as directed. * If PAR score is less than 8 or not return to pre-procedure baseline then patient will follow Phase I monitoring till PAR is reached for Phase II. The Phase I may be done in procedure room or may call to secure a Phase I area. * If naloxone or flumazenil are used for reversal, hold in Phase I for continued monitoring from when last reversal dose was given for a minimum of 60 minutes or longer pending the nurse and/or physician discretion of patient condition before discharge to Phase II. Please call the Sedation Physician to re-evaluate and complete post-note for discharge to Phase II area. Do NOT discharge from procedure sedation or Phase 1 until post- sedation evaluation note is complete by procedure /sedation MD Sedation Discharge Instructions to be given to the patient at discharge to home.
[2019-08-19] MEDS ORDERED: ACETAMINOPHEN 325 MG TAB PO PRN (12:08)
--- NOTE | 2019-08-19 12:08 | Cardiac Catheterization ---
Cardiac Cath Procedure Full Procedure Date August 19, 2019 Pre-Procedure Diagnosis Pre-Procedure Diagnosis: Valvular Disease AUC Score AUC Score: 7 Post-Procedure Diagnosis Post-Procedure Diagnosis: Normal Coronary Arteries Procedure(s) Performed Procedure(s) Performed: Coronary Angiography Kiln Operator Macho Rizzo DO Service Worker(s) Armen ROA Estimated Blood Loss Estimated Blood Loss: 5cc Medication(s) Medication(s): Fentanyl, Lidocaine 1% and Versed Summary of Findings Normal coronary arteries Hemodynamics Rest Ao:: 73/46/57 Final Ao: 74/43/58 LV: N/A Recommendations Recommendations: Valve Replacement Specimens Specimens: None Radiation Exposure (mGy) 564 Contrast (mls) 45 Fluids (cc crystalloids) Fluids (cc crystalloids): 295 Nss Anesthesia Moderate sedation. Start 1137. End 1156. Sedation monitor Emilee French RN Procedural Complication(s) None Disposition PCU I attest to the content of the Intraoperative Record and any orders documented therein. Any exceptions are noted below. ACC Data: Foreign Diplomat Cardiac Status Clinical evaluation leading to the procedure CAD Presenation: Unstable angina Anginal Classification: CCS IV Heart Failure: NYHA Class: CCS IV Cardiogenic Shock within 24 Hours: No Cardiac Arrest within 24 Hours: No Imaging Studies Past 6 Months: Yes Stress Studies Past 6 Months: No Coronary Anatomy Dominant: Right Left Main (% Stenosis): Normal LAD (% Stenosis): Normal D1 (% Stenosis): Normal D2 (% Stenosis): Normal D3 (% Stenosis): Normal Circumflex (% Stenosis): Normal OM1 (% Stenosis): Normal OM2 (% Stenosis): Normal L PL1 (% Stenosis): Normal RCA (% Stenosis): Normal R PDA (% Stenosis): Normal R PL1 (% Stenosis): Normal R PL2 (% Stenosis): Normal Diagnostic Physicians Name: Macho Rizzo DO Status: Elective Closure Device Percutaneous Entry Location: Femoral Closure Device: Mynx Recommendations: Valve Replacement Intraprocedure Events Significant Disection: No Perforation: No
[2019-08-19] MEDS: AZITHROMYCIN 250 MG TAB PO SCH (12:51)
[2019-08-19] MEDS ORDERED: POTASSIUM CHLORIDE 20 MEQ TABCR PO STA (14:09)
[2019-08-19] MEDS: cefTRIAXone SODIUM 2,000 MG in DEXTROSE 5% 50 ML IV SCH (18:26)
[2019-08-20] MEDS: AZITHROMYCIN 250 MG TAB PO SCH (08:12)
[2019-08-20] MEDS: THIAMINE HCL 100 MG TAB PO SCH (08:13)
[2019-08-20] MEDS: MULTIVITAMIN TAB PO SCH (08:13)
[2019-08-20] MEDS: FOLIC ACID 1 MG TAB PO SCH (08:14)
--- NOTE | 2019-08-20 12:29 | Hospitalist Progress Note ---
Date of Service August 19, 2019 Assessment & Plan (1) Bilateral pleural effusion: Secondary to Acute HFrEF, severe aortic stenosis, severe aortic regurgitation Now status post thoracentesis (L side) on 08/17/2019, yielded 1800 cc, of transudative fluid and R side, 08/18/2019, that yielded about 1400 cc -Pulmonary consulted, recommend ongoing antibiotic treatment, and repeat CT chest in about 6 to 8 weeks -Cardiology consulted for Acute HFrEF, aortic stenosis and aortic regurgitation -Echocardiogram revealed LVEF of 34%, moderate global left ventricular hypokinesis -Patient will need surgical repair of aortic valve, in anticipation of this procedure, patient will need coronary angiography during this admission or within the next month -Patient now status post coronary angiography (08/19), revealed angiographically normal coronary arteries (2) Multifocal pneumonia: -Patient presenting from home with reports shortness of breath with minimal exertion -In the ED, CTA chest showing large bilateral pleural effusions with multifocal patchy infiltrates -saturating well on room air, no leukocytosis, procalcitonin negative, afebrile -Given large bilateral pleural effusions, considered some component of CHF as well; possible cardiomyopathy: alcoholic (patient reports drinking 3 beers per day however I suspect his use is more) vs. ischemic vs idiopathic -proBNP 12,000 -Received Lasix 40 mg IV -Echo confirmed heart failure with reduced ejection fraction, LVEF 34%, severe aortic regurgitation and severe aortic stenosis -S/p Zosyn in the ED; now on IV ceftriaxone and IV azithromycin for now -Pulmonary consulted for bilateral pleural effusions/multifoc. pna -appreciate their input (patient is now status post left thoracentesis (08/17), yielded 1800cc of transudative fluid, and R-sided thoracentesis - yielded about 1400cc of transudative fluid), also recommend ongoing antibiotic treatment and repeat CT chest in 6 to 8 weeks (3) Elevated troponin: (4) Abnormal ECG: -EKG shows mild ST depressions in the anterior and lateral leads -Troponin mildly elevated 0.05 -likely due to demand ischemia from large bilateral pleural effusions -Troponin then elevated at 0.2, secondary to above -EKG repeated, unchanged from previous -Pt continues to deny any chest pain, and says that he actually feels better each day -Echo as above -cardiology following, patient underwent cardiac cath 08/19, revealed angiographically normal coronary arteries (5) Alcohol use: -Patient reports drinking 3 beers per day however suspect he uses more -Monitor for signs of alcohol withdrawal -Place patient on alcohol withdrawal " at risk" protocol (6) DVT prophylaxis: -SCDs, ambulate Subjective Patient is sitting up in bed, in no acute distress. Pt hypotensive overnight. Says that his breathing is much better today after thoracenteses. He had right- sided thoracentesis yesterday that yielded about 1400 cc and left-sided thoracentesis 2 days ago that yielded about 1800 cc of transudative fluid. Patient underwent coronary angiography earlier today (08/19) , at the bedside discussed with him results - normal cardiac cath. Review of Systems Review of Systems: ROS per HPI, all other systems reviewed and negative Respiratory: + cough (occasional cough, keny. in the morning) and + dyspnea on exertion Physical Exam Physical Exam: Constitutional: male pt, sitting up in bed, in no acute distress, on room air Eyes: PERRL, EOMI, conjunctivae normal, anicteric sclerae ENMT: external ear and nose normal, oropharynx normal Respiratory: normal respiratory effort; no respiratory distress Auscultation: + diffuse rhonchi and crackles Cardiovascular: Rate/Rhythm: regular rhythm and + mild tachycardic, + syst. murmur at USB Vessels: normal peripheral pulses Extremities: no LE edema Gastrointestinal (Abdomen): normal bowel sounds, soft, nontender, nondistended, no guarding Musculoskeletal: no cyanosis or clubbing, extremities motor strength 5/5, moves all 4 extremities spontaneously Skin: no rashes, warm and dry Neurologic: PERRL, EOMI, accommodation nl, no face palsy, no dysarthria, speech fluent, moves all 4 extremities spontaneously Psychiatric: A+Ox3, euthymic affect Results & Data Vital Signs (Past 12 Hours) Vital Signs Temp Pulse Pulse Resp BP BP Pulse Ox 08/20/19 11:21 36.6 C 94 H 19 104/76 96 08/20/19 08:00 89 08/20/19 07:31 36.6 C 86 17 96/62 L 94 08/20/19 02:57 36.8 C 86 18 94/64 L 98 08/20/19 01:26 83 Medications Administered Current Inpatient Medications Acetaminophen (Tylenol) 650 mg PO Q4H PRN PRN Reason: pain/fever Stop: 09/15/19 16:49 Acetaminophen (Tylenol) 650 mg PO Q4H PRN PRN Reason: PAIN 1-3 Stop: 09/18/19 12:07 Azithromycin (Zithromax) 500 mg PO [facility] Stop: 08/22/19 09:01 Last Admin: 08/20/19 08:12 Dose: 500 mg Documented by: Folic Acid (Folvite) 1 mg PO [facility] Stop: 09/15/19 17:44 Last Admin: 08/20/19 08:14 Dose: 1 mg Documented by: Ceftriaxone Sodium 2,000 mg/ (Dextrose) 70 mls @ 140 mls/hr IV Q24H [facility] Stop: 08/23/19 17:29 Last Infusion: 08/19/19 19:20 Dose: Infused Documented by: Lorazepam (Ativan) 1 mg in 2 mls @ 2 mls/min IV ONE PRN; Protocol PRN Reason: EtoH Withdrawal AWSS 6-10 Stop: 09/15/19 17:31 Multivitamins (Multivitamin Tab) 1 tab PO [facility] Stop: 09/15/19 17:44 Last Admin: 08/20/19 08:13 Dose: 1 tab Documented by: Thiamine HCl (Vitamin B-1) 100 mg PO [facility] Stop: 09/15/19 17:44 Last Admin: 08/20/19 08:13 Dose: 100 mg Documented by:
[2019-08-20] MEDS: cefTRIAXone SODIUM 2,000 MG in DEXTROSE 5% 50 ML IV SCH (18:38)
--- NOTE | 2019-08-20 21:35 | Cardiology Progress Note ---
Date of Service August 20, 2019 Assessment & Plan (1) Acute HFrEF (heart failure with reduced ejection fraction): (2) Severe aortic stenosis: (3) Severe aortic regurgitation: Continue azithromycin and Rocephin for presumed superimposed pneumonia. The patient is critically severe aortic valve stenosis, severe aortic valve regurgitation, angiographically normal coronary arteries. 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 Plan on arranging outpatient consultation with CT surgery, ideally within the next week. Will make phone calls tomorrow and discuss case with CT surgery at [facility]. Subjective Patient seen in follow-up. He states his breathing is dramatically improved compared to prior to admission. Nonproductive cough still observed. Review of Systems Review of Systems: All systems reviewed & are unremarkable except as noted in HPI & below Physical Exam Physical Exam: Temp Pulse Resp BP Pulse Ox 36.6 C 89 18 107/72 96 08/20/19 19:50 08/20/19 19:50 08/20/19 19:50 08/20/19 19:50 08/20/19 19:50 Constitutional: WD/WN, vitals as above Respiratory: normal respiratory effort, lungs clear to auscultation Cardiovascular: Rate/Rhythm: regular rhythm Heart Sounds: + murmur (2/6 systolic murmur) Vessels: no JVD Extremities: no edema Gastrointestinal (Abdomen): normal bowel sounds, soft, nontender, no hepatosplenomegaly Neurologic: PERRL, EOMI, accommodation nl, no face palsy, no dysarthria Results & Data Vital Signs (Past 12 Hours) Vital Signs Temp Pulse Resp BP BP Pulse Ox 08/20/19 19:50 36.6 C 89 18 107/72 96 08/20/19 16:23 36.4 C L 94 H 18 104/71 97 08/20/19 11:21 36.6 C 94 H 19 104/76 96
[2019-08-21 07:17] LABS: Hematocrit (blood only) 42.2 % (42-52); Hemoglobin 14.2 g/dL (14.0-18.0); Mean Corpuscular Hemoglobin 32.3 pg (25-34); Mean Corpuscular Hgb Conc 33.6 g/dL (32-36); Mean Corpuscular Volume 96.1 fL (80-100); Mean Platelet Volume 10.3 fL (7.4-10.4); Platelet Count 188 K/uL (130-400); RDW Coefficient of Variation 12.4 % (11.5-14.5); RDW Standard Deviation 43.5 fL (36.4-46.3); Red Blood Count 4.39 M/uL (4.7-6.1); White Blood Count 5.38 K/uL (4.8-10.8)
[2019-08-21 07:43] LABS: BUN Creatinine Ratio 13.4 (10-20); Calcium 8.9 mg/dl (8.5-10.1); Est GFR (African American) 116.7; Est GFR (Non-African American) 100.7; Potassium 3.7 mmol/L (3.5-5.1)
[2019-08-21] MEDS: FOLIC ACID 1 MG TAB PO SCH (07:55)
[2019-08-21] MEDS: AZITHROMYCIN 250 MG TAB PO SCH (07:55)
[2019-08-21] MEDS: MULTIVITAMIN TAB PO SCH (07:55)
[2019-08-21] MEDS: THIAMINE HCL 100 MG TAB PO SCH (07:56)
[2019-08-21] MEDS ORDERED: POTASSIUM CHLORIDE 20 MEQ TABCR PO STA (09:55)
--- NOTE | 2019-08-21 10:00 | Cardiology Progress Note ---
Date of Service August 21, 2019 Assessment & Plan (1) Acute HFrEF (heart failure with reduced ejection fraction): (2) Severe aortic stenosis: (3) Severe aortic regurgitation: (4) Multifocal pneumonia: 53-year-old male presents with progressive shortness of breath, cough, no fever. He was diagnosed with acute heart failure with reduced ejection fraction, critically severe aortic valve stenosis, severe aortic valve regurgitation, suspected superimposed pneumonia. 08/17/2019: Transthoracic echocardiogram, critically severe left ear, severe AI, moderate global left ventricular hypokinesis, with more focal hypokinesis of the anterior and inferoseptal segments, LVEF 34%, calculated aortic valve area 0.5 cm 08/17/2019: Left thoracentesis yielding 1.85 L transudative fluid 08/18/2019: Right thoracentesis yielding 1.45 L, transudative fluid 08/19/2019: Left heart catheterization/invasive coronary angiography, angiographically normal coronaries. Case discussed by phone with Dr Lindsey Godinez of cardiothoracic surgery at [facility] [place] [facility]. He states that if patient is discharged today, he can see him tomorrow as an outpatient in consultation regarding surgical aortic valve replacement. Patient was agreeable this plan. 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 I counseled him that I would be supportive of the idea of him having short-term disability, and I can complete the paperwork as an outpatient. Recommend patient finishes a 2-week course of oral antibiotics. Subjective Chief complaint: Follow-up shortness of breath Subjective: Patient feeling well. Denies any chest discomfort or shortness of breath. He had a cough yesterday that was nonproductive, and he feels that is improved today. Overall he feels drastically improved compared to when he presented to the hospital. Feels sinus rhythm in the range of 80 to 90 bpm. Review of Systems Review of Systems: All systems reviewed & are unremarkable except as noted in HPI & below Physical Exam Physical Exam: CBC 08/21/19 Range/Units 06:44 WBC 5.38 (4.8-10.8) K/uL RBC 4.39 L (4.7-6.1) M/uL Hgb 14.2 (14.0-18.0) g/dL Hct 42.2 (42-52) % Plt Count 188 (130-400) K/uL Comprehensive Metabolic Panel 08/21/19 Range/Units 06:44 Sodium 135 L (136-145) mmol/L Potassium 3.7 (3.5-5.1) mmol/L Chloride 104 (98-107) mmol/L Carbon Dioxide 24 (21-32) mmol/L BUN 11 (7-18) mg/dl Creatinine 0.84 (0.6-1.4) mg/dl Glucose 97 (70-99) mg/dl Calcium 8.9 (8.5-10.1) mg/dl Intake and Output 08/20/19 08/21/19 08/21/19 22:59 06:59 14:59 Intake Total 370 / 610 Balance 370 / 610 Intake: IV 70 / 70 Rocephin 2,000 mg In D5w 50 ml 70 / 70 @ 140 mls/hr I V Q24H K[facility]INA Rx#: [id number] Oral 300 / 540 Other: # Unmeasured Voi ds 3 Weight 59.1 kg Results & Data Vital Signs (Past 12 Hours) Vital Signs Temp Pulse Pulse Resp BP Pulse Ox 08/21/19 07:36 36.5 C 83 18 97/64 L 90 08/21/19 03:38 36.4 C L 87 18 102/66 96 08/21/19 01:14 86 08/21/19 00:33 36.6 C 86 17 93/59 L 98
--- NOTE | 2019-08-21 10:10 | Hospitalist Progress Note ---
Date of Service August 20, 2019 (late entry) Assessment & Plan (1) Bilateral pleural effusion: Secondary to Acute HFrEF, severe aortic stenosis, severe aortic regurgitation Now status post thoracentesis (L side) on 08/17/2019, yielded 1800 cc, of transudative fluid and R side, on 08/18/2019, that yielded about 1400 cc -Pulmonary service consulted, recommend ongoing antibiotic treatment, and repeat CT chest in about 6 to 8 weeks -Cardiology consulted for Acute HFrEF, aortic stenosis and aortic regurgitation -Echocardiogram revealed LVEF of 34%, moderate global left ventricular hypokinesis 08/17/2019: Transthoracic echocardiogram, critically severe left ear, severe AI, moderate global left ventricular hypokinesis, with more focal hypokinesis of the anterior and inferoseptal segments, LVEF 34%, calculated aortic valve area 0.5 cm -Patient will need surgical repair of aortic valve, in anticipation of this procedure, patient underwent coronary angiography during this admission -Patient now status post coronary angiography (08/19), revealed angiographically normal coronary arteries -Patient will need to follow-up with CT surgery at [facility], for aortic valve repair/replacement (2) Multifocal pneumonia: -Patient presenting from home with reports shortness of breath with minimal exertion -In the ED, CTA chest showing large bilateral pleural effusions with multifocal patchy infiltrates -saturating well on room air, no leukocytosis, procalcitonin negative, afebrile -Given large bilateral pleural effusions, considered some component of CHF as w ell; possible cardiomyopathy: alcoholic (patient reports drinking 3 beers per day however I suspect his use is more) vs. ischemic vs idiopathic -proBNP 12,000 -Received Lasix 40 mg IV -Echo confirmed heart failure with reduced ejection fraction, LVEF 34%, severe aortic regurgitation and severe aortic stenosis -S/p Zosyn in the ED; now on IV ceftriaxone and IV azithromycin for now -Pulmonary consulted for bilateral pleural effusions/multifoc. pna -appreciate their input (patient is now status post left thoracentesis (08/17), yielded 1800cc of transudative fluid, and R-sided thoracentesis - yielded about 1400cc of transudative fluid), also recommend ongoing antibiotic treatment and repeat CT chest in 6 to 8 weeks (3) Elevated troponin: (4) Abnormal ECG: -EKG shows mild ST depressions in the anterior and lateral leads -Troponin mildly elevated 0.05 -likely due to demand ischemia from large bilateral pleural effusions -Troponin then elevated at 0.2, secondary to above -EKG repeated, unchanged from previous -Pt continues to deny any chest pain, and says that he actually feels better each day -Echo as above -cardiology following, patient underwent cardiac cath 08/19, revealed angiographically normal coronary arteries (5) Alcohol use: -Patient reports drinking 3 beers per day however suspect he uses more -Monitor for signs of alcohol withdrawal -Place patient on alcohol withdrawal " at risk" protocol (6) DVT prophylaxis: -SCDs, ambulate Subjective Patient is sitting up in bed, in no acute distress. Says that his breathing is much better. Underwent cardiac cath yesterday, which showed angiographically normal coronary arteries. Patient denies any fevers, chills, chest pain, shortness of breath, abdominal pain, nausea or vomiting. Review of Systems Review of Systems: ROS per HPI, all other systems reviewed and negative Respiratory: + cough (occasional cough, keny. in the morning) and + dyspnea on exertion Physical Exam Physical Exam: Constitutional: male pt, sitting up in bed, in no acute distress, on room air Eyes: PERRL, EOMI, conjunctivae normal, anicteric sclerae ENMT: external ear and nose normal, oropharynx normal Respiratory: normal respiratory effort; no respiratory distress Auscultation: + mild diffuse rhonchi and crackles (improved) Cardiovascular: Rate/Rhythm: regular rhythm, + syst. murmur at USB Vessels: normal peripheral pulses Extremities: no LE edema b/l Gastrointestinal (Abdomen): normal bowel sounds, soft, nontender, nondistended, no guarding Musculoskeletal: no cyanosis or clubbing, extremities motor strength 5/5, moves all 4 extremities spontaneously Skin: no rashes, warm and dry Neurologic: PERRL, EOMI, accommodation nl, no face palsy, no dysarthria, speech fluent, moves all 4 extremities spontaneously Psychiatric: A+Ox3, euthymic affect Results & Data Vital Signs (Past 12 Hours) reviewed Laboratory Results reviewed Medications Administered Current Inpatient Medications Acetaminophen (Tylenol) 650 mg PO Q4H PRN PRN Reason: pain/fever Stop: 09/15/19 16:49 Acetaminophen (Tylenol) 650 mg PO Q4H PRN PRN Reason: PAIN 1-3 Stop: 09/18/19 12:07 Azithromycin (Zithromax) 500 mg PO [facility] Stop: 08/22/19 09:01 Last Admin: 08/21/19 07:55 Dose: 500 mg Documented by: Folic Acid (Folvite) 1 mg PO [facility] Stop: 09/15/19 17:44 Last Admin: 08/21/19 07:55 Dose: 1 mg Documented by: Ceftriaxone Sodium 2,000 mg/ (Dextrose) 70 mls @ 140 mls/hr IV Q24H COUNTS INCLUDE 234 BEDS AT THE [facility] Stop: 08/23/19 17:29 Last Infusion: 08/20/19 20:46 Dose: Infused Documented by: Lorazepam (Ativan) 1 mg in 2 mls @ 2 mls/min IV ONE PRN; Protocol PRN Reason: EtoH Withdrawal AWSS 6-10 Stop: 09/15/19 17:31 Multivitamins (Multivitamin Tab) 1 tab PO [facility] Stop: 09/15/19 17:44 Last Admin: 08/21/19 07:55 Dose: 1 tab Documented by: Thiamine HCl (Vitamin B-1) 100 mg PO [facility] Stop: 09/15/19 17:44 Last Admin: 08/21/19 07:56 Dose: 100 mg Documented by:
--- NOTE | 2019-08-21 10:57 | Discharge Summary ---
Date of Service August 21, 2019 Admission HPI Per Admitting Provider 53-year-old male who presents the ED for evaluation of shortness of breath. Patient reports he has not been seen a physician in his adult life. He reports increasing exertional shortness of breath for the past 3 weeks. Shortness of breath is currently to the point that he gets short of breath with minimal exertion. He reports orthopnea. No lower extremity edema. He has had a productive cough. Unsure of the color as he typically swallows it. He denies chest pain. No recent travel or sick contacts. Denies fevers and chills. No lightheadedness, dizziness, diaphoresis, syncopal events. No abdominal pain, nausea vomiting diarrhea. Denies any urinary symptoms. In the ED, CT chest shows large bilateral pleural effusions with multifocal patchy infiltrates. Patient was given IV Zosyn. Admission Exam Per Admitting Provider Constitutional: WD/WN, vitals as above Eyes: PERRL, conjunctivae normal, anicteric sclerae ENMT: external ear and nose normal, oropharynx normal Respiratory: normal respiratory effort; no respiratory distress Auscultation: + diminished lung sounds (Bilaterally) Cardiovascular: Rate/Rhythm: regular rhythm and + tachycardic Vessels: normal peripheral pulses Extremities: no edema Gastrointestinal (Abdomen): normal bowel sounds, soft, nontender, no hepatosplenomegaly Musculoskeletal: no cyanosis or clubbing, extremities motor strength 5/5 Skin: no rashes, warm and dry Neurologic: PERRL, EOMI, accommodation nl, no face palsy, no dysarthria Psychiatric: A+Ox3, euthymic affect Principal Diagnosis Heart failure with reduced ejection fraction, severe aortic regurgitation, severe aortic stenosis, bilateral pleural effusions, multifocal pneumonia Discharge Exam Constitutional: male pt, sitting up in bed, in no acute distress, on room air Eyes: PERRL, EOMI, conjunctivae normal, anicteric sclerae ENMT: external ear and nose normal, oropharynx normal Respiratory: normal respiratory effort; no respiratory distress Auscultation: + mild diffuse rhonchi and crackles (improved) Cardiovascular: Rate/Rhythm: regular rhythm, + syst. murmur at USB Vessels: normal peripheral pulses Extremities: no LE edema b/l Gastrointestinal (Abdomen): normal bowel sounds, soft, nontender, nondistended, no guarding Musculoskeletal: no cyanosis or clubbing, extremities motor strength 5/5, moves all 4 extremities spontaneously Skin: no rashes, warm and dry Neurologic: PERRL, EOMI, accommodation nl, no face palsy, no dysarthria, speech fluent, moves all 4 extremities spontaneously Psychiatric: A+Ox3, euthymic affect Discharge Data Allergies Allergy/AdvReac Type Severity Reaction Status Date / Time No Known Allergies Allergy Unverified 08/16/19 13:48 Consultations 08/16/19 14:55 ED Decision to Admit Stat 08/16/19 16:50 Consult Pulmonology Routine 08/17/19 13:13 Consult Cardiology Routine Procedures Performed Operation Date: 08/19/19 10:30 Actual Procedures s Cineradiography w/Routine Exam - Macho Rizzo DO p Cath, Coronaries ONLY (no LV) - Macho Rizzo DO Ordered Studies 08/16/19 13:57 CT angio chest PE protocol Stat 08/17/19 11:33 US point of care ultrasound Urgent 08/18/19 12:23 US point of care ultrasound Urgent 08/19/19 07:23 CL Cath Imgs for PACS use only Routine Hospital Course (1) Bilateral pleural effusion: Secondary to Acute HFrEF, severe aortic stenosis, severe aortic regurgitation Now status post thoracentesis (L side) on 08/17/2019, yielded 1800 cc, of transudative fluid and R side, on 08/18/2019, that yielded about 1400 cc -Pulmonary service consulted, recommend ongoing antibiotic treatment, and repeat CT chest in about 6 to 8 weeks -Cardiology consulted for Acute HFrEF, aortic stenosis and aortic regurgitation -Echocardiogram revealed LVEF of 34%, moderate global left ventricular hypokinesis 08/17/2019: Transthoracic echocardiogram, critically severe left ear, severe AI, moderate global left ventricular hypokinesis, with more focal hypokinesis of the anterior and inferoseptal segments, LVEF 34%, calculated aortic valve area 0.5 cm -Patient will need surgical repair of aortic valve, in anticipation of this procedure, patient underwent coronary angiography during this admission -Patient now status post coronary angiography (08/19), revealed angiographically normal coronary arteries -Patient will need to follow-up with CT surgery at [facility], for aortic valve repair/replacement (2) Multifocal pneumonia: -Patient presenting from home with reports shortness of breath with minimal exer tion -In the ED, CTA chest showing large bilateral pleural effusions with multifocal patchy infiltrates -saturating well on room air, no leukocytosis, procalcitonin negative, afebrile -Given large bilateral pleural effusions, considered some component of CHF as well; possible cardiomyopathy: alcoholic (patient reports drinking 3 beers per day however I suspect his use is more) vs. ischemic vs idiopathic -proBNP 12,000 -Received Lasix 40 mg IV -Echo confirmed heart failure with reduced ejection fraction, LVEF 34%, severe aortic regurgitation and severe aortic stenosis -S/p Zosyn in the ED; now on IV ceftriaxone and IV azithromycin for now -Pulmonary consulted for bilateral pleural effusions/multifoc. pna -appreciate their input (patient is now status post left thoracentesis (08/17), yielded 1800cc of transudative fluid, and R-sided thoracentesis - yielded about 1400cc of transudative fluid), also recommend ongoing antibiotic treatment and repeat CT chest in 6 to 8 weeks (3) Elevated troponin: (4) Abnormal ECG: -EKG shows mild ST depressions in the anterior and lateral leads -Troponin mildly elevated 0.05 -likely due to demand ischemia from large bilateral pleural effusions -Troponin then elevated at 0.2, secondary to above -EKG repeated, unchanged from previous -Pt continues to deny any chest pain, and says that he actually feels better each day -Echo as above -cardiology following, patient underwent cardiac cath 08/19, revealed angiographically normal coronary arteries (5) Alcohol use: -Patient reports drinking 3 beers per day however suspect he uses more -Monitor for signs of alcohol withdrawal -Place patient on alcohol withdrawal " at risk" protocol (6) DVT prophylaxis: -SCDs, ambulate Discharge Plan Discharge Items Patient Disposition: Home - Self-Care Reason For Visit: MULTIFOCAL PNEUMONIA, BL PLUERAL EFFUSIONS Discharge Diagnosis: Heart failure with reduced ejection fraction, severe aortic regurgitation, severe aortic stenosis, bilateral pleural effusions, multifocal pneumonia Activity: Per Instructions section Activity Comment: pace yourself, ask for help as needed Exercise/Sports: Wait until after follow-up appointment Non-emergency contact: Sap Abap Programmer Call non-emergency contact if: you have any medication questions and your symptoms worsen Follow-up/Referrals: PCP,NO [Primary Care Provider] - Diet: Low Sodium (2gm) Fluids: 2000ml (8 cups) Addtl Attending Provider Instructions: As discussed with Dr. Spring (lower school spanish teacher), you will need to follow-up at [facility] in [place], with Dr. Godinez (cardiothoracic surgeon), regarding your aortic valve replacement. You are supposed to have this consultation with dr. Godinez tomorrow. Take antibiotics, as prescribed, start the first dose tonight. You will need a repeat CT scan of your chest, in 6 to 8 weeks. This can be arranged by your primary care doctor, or you can follow-up with territory sales executive. We are in the process of setting you up with new primary care provider. Please see activity and other recommendations below in detail: ACTIVITY RECOMMENDATIONS: It is common to feel weak and fatigue for a few days. * Do not drive or operate any motorized equipment for the next three days. * Limit stair usage (2 or 3 trips a day only) for the next three days. * Do not lift anything heavier than 10 pounds for the next three days. * Do not engage in vigorous exercise or any sports for the next five days. * You may shower the day after your procedure, but do not immerse the area for three days. Cleanse the site gently with soap and water. SPECIAL CARE INSTRUCTIONS: * You may replace the pressure dressing or band-aid the morning after the procedure. * After your procedure, it is normal to have a small bruise or small lump at the site. Examine your site daily for any change in the bruise or lump, redness, swelling, drainage or numbness. Notify your doctor if any change. BLEEDING: * If there is a small amount of bleeding at the site, lie down and apply firm pressure with a clean cloth for ten minutes. When the bleeding stops, lie quietly keeping the procedure limb straight for six hours. Notify your doctor as soon as possible. * If the bleeding does not stop after ten minutes or if there is a large amount of bleeding or spurting, call 911 immediately. Continue to lie down and hold firm pressure until help arrives. SKIN IRRITATION: * You may experience some redness and/or swelling in the area where radiation was administered. If any skin irritation occurs, please contact your family physician. FOLLOW UP VISIT: Keep any scheduled doctor appointments. Pending Studies at Discharge: No Stand-Alone Forms: My [facility], Smoking Cessation Medications and DC Order Prescriptions: New cefuroxime axetil 500 mg tablet 500 mg PO BID 9 Days Qty: 18 RF: 0 doxycycline hyclate 100 mg capsule 100 mg PO BID 9 Days Qty: 18 RF: 0 guaifenesin 600 mg tablet extended release 12hr 600 mg PO BID 10 Days Qty: 20 RF: 0 No Action No Known Home Medications RF: 0 Discharge Orders: Discharge Order (Routine); Ordered 08/21/19 Ordered By: Ham Yanez Admission Data Admit Date/Time: 08/16/19 15:32 Attending Provider: Ham Yanez Admit Provider: Frances Garcia Primary Care Provider: PCP,NO Other Providers: Frances Garcia ; Baldo Yao ; Jonnie Spring Other Interventions: Discharge Summary Assessment (RN) Last Done: 08/21/19 11:18 DC Date/Time DO NOT enter until pt leaves facility: 08/21/19 11:52
== END 2019-08-21 11:52 | disposition home or self-care (01) | DRG 193 ==
LOC: ED 12:28 → 2N 15:32 → SUATTDRO 15:32 → 2N 16:13 → 2S 08-19 12:42
PROC: CLB.CCO (2019-08-19 10:30)